=== PATIENT | female | born 1985 | race Caucasian/White ===

== ENCOUNTER → 2018-10-22 12:50 | Outpatient (CLI) | payer OTHER, SELFPAY ==
--- NOTE | 2018-10-22 12:54 | XR_ITS ---
EXAM: XR lumbar spine 2-3V HISTORY: ITS.REASON: low back pain ORDERING PHYSICIAN: Narayan Goss APRN PATIENT AGE: 32 years COMPARISON: None FINDINGS: Frontal view shows very mild curvature, approximately 7 degrees, convex towards the left. Posterior elements are intact. Bone density and vertebral body heights and disc space heights are normal considering some curvature and angulation of technique. Impression: No acute process. Very mild levoscoliosis of 7 degrees.
[2018-10-22 13:37] LABS: Basophils % 0.4 % (0.1-2.0); Eosinophils # 0.1 K/mm3 (0.0-0.4); Eosinophils % 1.1 % (0.1-12.0); Hematocrit 42.1 % (37.0-47.0); Hemoglobin 13.5 g/dL (12.2-16.2); Lymphocytes # 2.8 K/mm3 (0.7-4.5); Lymphocytes % 25.9 % (10-50); Mean Corpuscular HGB Conc 32.2 g/dL (31.8-35.4); Mean Corpuscular Hemoglobin 30.1 pg (27.0-31.2); Mean Corpuscular Volume 93.6 fl (81-99); Mean Platelet Volume 10.3 fl (7.4-10.4); Monocytes # 0.4 K/mm3 (0.1-1.0); Monocytes % 3.9 % (1.7-9.3); Neutrophils # 7.3 K/mm3 (1.8-7.8); Neutrophils % 68.6 % (37.0-80.0); Platelet Count 235 K/mm3 (142-424); Red Cell Distribution Width 13.9 % (11.5-17.5); White Blood Count 10.7 K/mm3 (4.8-10.8)
[2018-10-22 19:01] LABS: Alanine Aminotransferase 18 U/L (12-78); Albumin Level 3.9 gm/dL (3.4-5.0); Albumin/Globulin Ratio 1.3 (1.1-1.8); Alkaline Phosphatase 56 U/L (46-116); Anion Gap 17.3 mEq/L (5-15); Aspartate Amino Transferase 10 U/L (15-37); Bilirubin,Total 0.4 mg/dL (0.2-1.0); Blood Urea Nitrogen 19 mg/dL (7-18); Calcium 9.3 mg/dL (8.5-10.1); Carbon Dioxide 22 mmol/L (21.0-32.0); Chloride 105 mmol/L (98-107); Chol/HDL Ratio 3.9 (1-3.5); Cholesterol 153 mg/dL (140-200); Creatinine,Serum 0.74 mg/dL (0.55-1.02); Estimated Glomerular Filt Rate 91 ml/min (>60); GFR (African American) 110 ML/MIN (>60); Globulin 3.1 gm/dl (1.3-3.2); Glucose 87 mg/dL (74-106); HDL Cholesterol 39 mg/dL (29-89); LDL Cholesterol 101 mg/dL (0-130); Potassium 3.3 mmoL/L (3.5-5.1); Sodium 141 mmol/L (136-145); T4 (Thyroxine) 8.9 ug/dl (4.7-13.3); Thyroid Stimulating Hormone 0.49 uIU/ml (0.358-3.740); Triglycerides 66 mg/dL (30-200); VLDL Cholesterol 13 mg/dL (0-40)
[2018-10-25 18:17] LABS: Vitamin D 25 Hydroxy 35.3 ng/mL (30.0-100.0)
== END ==
PROVIDERS: PCP Nurse Practitioner Family; Visit Provider Nurse Practitioner Family
DX: Z00.00 Encounter for general adult medical examination without abnormal findings (principal); M54.42 Lumbago with sciatica, left side; G89.29 Other chronic pain
CPT/HCPCS: 36415; 72100; 80053; 80061; 82652; 84436; 84443; 85025

== ENCOUNTER → 2019-07-15 16:48 | Outpatient (CLI) | payer BC, SELFPAY ==
[2019-07-29 08:40] LABS: Covid-19 Nasal PCR Sendout Lex NOT DETECTED
--- NOTE | 2019-07-29 09:30 | PC.NURSE ---
Patient and provider notified of negative COVID 19 results. Results also faxed to [facility].
== END ==
PROVIDERS: Visit Provider Nurse Practitioner Family
DX: R06.02 Shortness of breath (principal); R50.9 Fever, unspecified; R05 Cough; R53.83 Other fatigue

== ENCOUNTER 2019-08-14 15:25 | Observation (INO) | payer BC, SELFPAY ==
[2019-08-14 15:25] VITALS: BP 120/49; PULSE 89; RESP 20; TEMP 36.8; O2SAT 100; BMI 25.0
[2019-08-14 15:40] VITALS: BMI 25.0
--- NOTE | 2019-08-14 15:40 | CT_ITS ---
Procedure: CT ABDOMEN PELVIS W CON Patient Age:33Y CLINICAL INDICATION: ABD PAIN right-sided abdominal pain radiates into back. Smoker Previous hysterectomy.patient drank oral contrast prior to the scan COMPARISON: No exams were available for comparison TECHNIQUE: 75 cc Optiray 350. IV contrast utilized. Diluted Gastrografin enteric contrast also given oral Axial images obtained with sagittal and coronal reformats. All CT scans at the facility use one or more dose reduction, viz: automated exposure control, ma/kV adjustment per patient size (including targeted exams where dose is matched to indication, i.e. head), or iterative reconstruction technique. FINDINGS: Lower thorax: No acute finding. 9 mm benign calcified granuloma periphery left lung base ABDOMEN: Liver: No masses or biliary dilatation. Unremarkable Gallbladder: Nondistended. No radio opaque stones. Pancreas: No masses or peripancreatic fluid collections. Spleen: unremarkable Adrenals: unremarkable Kidneys/ureters: unremarkable PELVIS: Hysterectomy no adnexal masses e Bladder: Nondistended. No obvious stones or masses.. GI tract.=== Stomach. Unremarkable. Contrast mixed with food remains within stomach Small bowel. Proximal small bowel borderline and upper normal caliber contrast filled proximal small bowel measured at 2.5 cm with a air-fluid levels. The oral contrast is only reached the mid small bowel even after what seems to be adequate time of 80 minutes on technologist's data sheet. With this we see numerous Unopacified loops of ileum seen at the at left and right abdomen. This along with the slight increased fluid at the distal small bowel and delayed transit, suggestive of mild ileus.. Upper normal wall thickness seen at some areas of small bowel. . There does seem to be slight increased fluid with of scattered few air-fluid levels at the distal small bowel findings may reflect mild ileus or could be related delayed transit due to the increased stool right colon yielding partial restriction The terminal ileum appears normal. The appendix is normal. Large bowel. Generous increased solid stool throughout the right and transverse colon suggesting mild constipation Moderate gas with minimal stool throughout the left colon, descending colon and rectosigmoid. Upper normal wall thickness at splenic flexure most likely reflects lack distension Of large bowel here Peritoneum: No abnormal fluid collections. No obvious inflammatory changes. No free air. Lymph nodes: No significant enlarged lymph nodes apparent. Few small scattered non-specific nodes mesentery doubt of current significance. Vasculature: Unremarkable no evidence of abdominal aortic aneurysm... Bones: No acute fracture IMPRESSION: Prominent, increased stool throughout the right and transverse colon reflecting constipation in these regions. Borderline dilatation of proximal small bowel loops with slow transit of oral contrast. (After approximately 80 minutes oral contrast is only reached the mid small bowel. It typically reaches the terminal ileum by this period of time) This a slow transit may reflect mild ileus or conceivably could be due to the increased stool delaying transit Appendix normal.. No acute inflammatory changes abdomen or pelvis Dictated by: German Cartwright MD 08/14/2019 18:52 Electronically signed by German Cartwright MD in [place] 08/14/2019 18:52
[2019-08-14 15:56] LABS: Microscopic, Urine URINE MICROSCOPIC (MICROSCOPIC)
[2019-08-14 15:59] LABS: Basophils # 0.1 K/mm3 (0-0.2); Eosinophils # 0.3 K/mm3 (0.0-0.4); Eosinophils % 3.5 % (0.1-12.0); Hematocrit 43.6 % (37.0-47.0); Hemoglobin 14.5 g/dL (12.2-16.2); Lymphocytes # 2.8 K/mm3 (0.7-4.5); Lymphocytes % 34.1 % (10-50); Mean Corpuscular HGB Conc 33.3 g/dL (31.8-35.4); Mean Corpuscular Hemoglobin 29.6 pg (27.0-31.2); Mean Corpuscular Volume 88.8 fl (81-99); Mean Platelet Volume 10.7 fl (7.4-10.4); Monocytes # 0.3 K/mm3 (0.1-1.0); Monocytes % 4.2 % (1.7-9.3); Neutrophils # 4.7 K/mm3 (1.8-7.8); Neutrophils % 57.2 % (37.0-80.0); Platelet Count 201 K/mm3 (142-424); Red Blood Count 4.91 M/mm3 (4.20-5.40); Red Cell Distribution Width 13.2 % (11.5-17.5); White Blood Count 8.2 K/mm3 (4.8-10.8)
[2019-08-14 16:01] LABS: Appearance,Urine CLEAR (Clear); Bilirubin,Urine Negative (Negative); Blood, Urine Negative (Negative); Color,Urine YELLOW (Yellow); Glucose,Urine (UA) TRACE (Negative); Ketones,Urine TRACE (Negative); Leukocyte Esterase,Urine TRACE (Negative); Nitrate,Urine POSITIVE (Negative); Protein,Urine 2+ (Negative); Specific Gravity, Urine 1.025 (1.005-1.030); Urobilinogen,Urine >=8.0 EU/dl (0.2)
[2019-08-14 16:11] LABS: Bacteria,Urine 2+ /lpf
[2019-08-14 16:12] LABS: Amphetamine/Metha Screen,Urine Negative ng/ml (<1000); Barbiturates Screen,Urine Negative ng/ml (<200)
[2019-08-14 16:13] LABS: Benzodiazepines Screen,Urine Negative ng/ml (<200)
[2019-08-14 16:14] LABS: Cannabinoid Screen,Urine Positive ng/ml (<50); Cocaine Screen,Urine Negative ng/ml (<300)
[2019-08-14 16:15] LABS: Methadone Screen,Urine Negative ng/ml (<300)
[2019-08-14 16:16] LABS: Opiate Screen,Urine Negative ng/ml (<300); Phencyclidine Screen,Urine Negative ng/ml (<25)
--- NOTE | 2019-08-14 16:20 | PC.NURSE ---
NOTIFIED RAD OF PT FINISHING CONTRAST
[2019-08-14 16:36] LABS: Alanine Aminotransferase 9 U/L (12-78); Albumin Level 4.5 g/dl (3.5-5.0); Albumin/Globulin Ratio 1.4 (1.1-1.8); Alkaline Phosphatase 43 U/L (38-126); Amylase 44 U/L (30-110); Anion Gap 10.6 mEq/L (5-15); Aspartate Amino Transferase 26 U/L (14-36); Bilirubin,Total 0.3 mg/dl (0.2-1.3); Blood Urea Nitrogen 14 mg/dl (7-17); Calcium 9.7 mg/dl (8.4-10.2); Carbon Dioxide 31 mmol/L (22.0-30.0); Chloride 100 mmol/L (98-107); Creatinine Clearance Estimated 153 mL/min (50-200); Estimated Glomerular Filt Rate 115 ml/min (>60); GFR (African American) 139 ML/MIN (>60); Globulin 3.3 g/dL (1.3-3.2); Glucose 84 mg/dl (74-100); Lipase 23 U/L (23-300); Potassium 3.6 mmoL/L (3.5-5.1); Sodium 138 mmol/L (136-145); Total Protein,Serum 7.8 g/dl (6.3-8.2)
--- NOTE | 2019-08-14 18:41 | PC.NURSE ---
CALLED RADIOLOGY FOR UPDATE ON RESULTS OF CT, STATED HE WAS READING IT RIGHT NOW
--- NOTE | 2019-08-14 18:55 | PC.NURSE ---
CALLED AGAIN TO FIND OUT WHY RADIOLOGIST HADN'T READ CT. SPOKE WITH GUANACO. SHE ADVISED THAT HE HAD JUST FINISHED READING IT AND THE COMPLETE REPORT SHOULD BE INTO PAX WITHIN 4 MINS.
--- NOTE | 2019-08-14 18:59 | PC.NURSE ---
PAGING DR MCDANIEL, WHO IS CHEMIC MANGLER FOR DR COUGHLIN
--- NOTE | 2019-08-14 19:08 | HMH.EDABDPAI ---
ED Disposition Clinical Impression: Adynamic ileus, Abdominal pain Disposition: Admitted as Observation Condition on Discharge: Good Instructions: DI for Acute Abdomen Additional Instructions: Spoke to Dr. Arzate for admission for this patient. Referrals: Edgar Todd MD [Primary Care Provider] - - Critical Care Critical Care Time: No Attestation: On 08/14/19, the high probability of a clinically significant, sudden or life threatening deterioration of the following system(s) required my full and direct attention, intervention and personal management. The time I documented below is in addition to time spent performing reported procedures but includes the following listed in this critical care notation. Medical Decision Making - Medical Records Medical records reviewed: Yes: I reviewed the patient's medical records. - Royce Inquiry Pt receiving controlled substance: No Vital Signs: 08/14/19 15:25 Temperature 98.3 F Temperature Source Oral Pulse Rate [Right] 89 Respiratory Rate 20 Blood Pressure [Right Arm] 120/49 L Blood Pressure Mean [Right Arm] 72 02 Sat by Pulse Oximetry 100 - Lab Data Lab results reviewed: Yes: I reviewed the patient's lab results. Lab Results 08/14/19 15:45: Urine Color Yellow, Urine Appearance Clear, Urine pH 5.0, Ur Specific [place] 1.025, Urine Protein 2+, Urine Glucose (UA) Trace, Urine Ketones Trace, Urine Blood Negative, Urine Nitrate Positive, Urine Bilirubin Negative, Urine Urobilinogen >=8.0, Ur Leukocyte Esterase Trace, Urine RBC None, Urine WBC 3-5, Ur Squamous Epith Cells 10-20, Urine Bacteria 2+ 08/14/19 15:45: WBC 8.2, RBC 4.91, Hgb 14.5, Hct 43.6, MCV 88.8, MCH 29.6, MCHC 33.3, RDW 13.2, Plt Count 201, MPV 10.7 H, Neut % (Auto) 57.2, Lymph % (Auto) 34.1, Bledsoe % (Auto) 4.2, Eos % (Auto) 3.5, Baso % (Auto) 1.0, Neut # (Auto) 4.7, Lymph # (Auto) 2.8, Bledsoe # (Auto) 0.3, Eos # (Auto) 0.3, Baso # (Auto) 0.1 08/14/19 15:45: Sodium 138, Potassium 3.6, Chloride 100, Carbon Dioxide 31 H, Anion Gap 10.6, BUN 14, Creatinine 0.60, Estimated Creat Clear 153, Estimated GFR 115, Est GFR ( Amer) 139, Glucose 84, Calcium 9.7, Total Bilirubin 0.3, AST 26, ALT 9 L, Alkaline Phosphatase 43, Total Protein 7.8, Albumin 4.5, Globulin 3.3 H, Albumin/Globulin Ratio 1.4, Amylase 44, Lipase 23 08/14/19 15:45: Urine Opiates Screen Negative, Urine Methadone Screen Negative, Ur Barbituates Screen Negative, Ur Phencyclidine Scrn Negative, Ur Amphetamines Screen Negative, U Benzodiazepines Scrn Negative, Urine Cocaine Screen Negative, U Marijuana (THC) Screen Positive H Result diagrams: 08/14/19 15:45 08/14/19 15:45 Orders (Tests/Meds): ED MEDICATIONS Generic Name Dose Route Start Last Admin Trade Name Freq PRN Reason Stop Dose Admin Sodium Chloride 1,000 mls @ 999 mls/hr 08/14/19 16:30 08/14/19 16:22 Sod Chlor 0.9% 1000ml Bag IV 08/14/19 17:30 999 mls/hr .Q1H1M ANTHONY Administration Discontinued Medications Generic Name Dose Route Start Last Admin Trade Name Freq PRN Reason Stop Dose Admin Fentanyl Citrate 85 mcg 08/14/19 16:20 08/14/19 16:22 Fentanyl 100mcg/2ml Vial IV 08/14/19 16:21 85 mcg ONCE ONE Administration Hydromorphone HCl 1 mg 08/14/19 18:34 08/14/19 18:35 Dilaudid 2mg/Ml Syringe IV 08/14/19 18:35 1 mg ONCE ONE Administration Ioversol 75 ml 08/14/19 17:43 08/14/19 17:44 Rad-Optiray 350 100ml Vial IV 08/14/19 17:44 75 ml ONCE ONE Administration Protocol Ketorolac Tromethamine 30 mg 08/14/19 15:41 08/14/19 16:22 Toradol 30mg/Ml Vial IV 08/14/19 15:42 30 mg ONCE ONE Administration Morphine Sulfate 4 mg 08/14/19 17:01 08/14/19 17:02 Morphine 4mg/Ml Syringe IV 08/14/19 17:02 4 mg ONCE ONE Administration Ondansetron HCl 4 mg 08/14/19 16:20 08/14/19 16:22 Zofran 4mg/2ml Vial IV 08/14/19 16:21 4 mg ONCE ONE Administration Sodium Chloride 10 ml 08/14/19 17:43 08/14/19 17:44 R
[2019-08-14 19:41] VITALS: BP 105/72; PULSE 73; RESP 14; TEMP 36.8; O2SAT 98
--- NOTE | 2019-08-14 19:55 | PC.NURSE ---
PT ARRIVED TO THE FLOOR VIA W/C FROM ED DEPARTMENT @ [id number].
[2019-08-14 20:04] VITALS: BP 112/64; PULSE 70; RESP 18; TEMP 36.6; O2SAT 99; BMI 26.5
[2019-08-14 21:04] LABS: C-Reactive Protein 2.1 mg/L (0-4)
[2019-08-14 21:16] LABS: Erythrocyte Sedimentation Rate 7 mm/hr (0-20)
--- NOTE | 2019-08-15 03:33 | PC.NURSE ---
Pt with much pain r/t left lower quad abdomen radiating into flank area. Pt reports, I tried everything I could think of to fix myself, I took AZO & Dulcolax thinking I needed to have a bm or it could be my kidneys, but nothing worked to get rid of this pain. Reports began the beginning of the week and worsened last 2 days to the point of being unbearable. During admission pt reported losing her brother in a MVC last week in [place]. They were 15 months apart and very close which has put her under a lot of stress. Pt tearful during conversation, also reporting she was quarantined from work r/t sickness, just one thing after another. Vital signs stable, IV infusing well, up with steady gait to bathroom, pt reports a bm this morning and asked, How can someone with a clogged bowel have a bm? Education given with pt on board with POC. Bowel sounds are audible in all quads, abd soft and tender. Pt found curled towards the left side with feet pulled inward, resting, monitoring continues.
[2019-08-15 04:27] VITALS: BP 90/58; PULSE 70; RESP 16; TEMP 36.4; O2SAT 97
[2019-08-15 05:59] LABS: Basophils % 0.6 % (0.1-2.0); Eosinophils # 0.3 K/mm3 (0.0-0.4); Eosinophils % 5.3 % (0.1-12.0); Hematocrit 36.2 % (37.0-47.0); Lymphocytes # 2.2 K/mm3 (0.7-4.5); Lymphocytes % 37.3 % (10-50); Mean Corpuscular HGB Conc 32.8 g/dL (31.8-35.4); Mean Corpuscular Hemoglobin 29.1 pg (27.0-31.2); Mean Corpuscular Volume 88.6 fl (81-99); Mean Platelet Volume 10.6 fl (7.4-10.4); Monocytes # 0.3 K/mm3 (0.1-1.0); Monocytes % 5.7 % (1.7-9.3); Neutrophils % 51.1 % (37.0-80.0); Platelet Count 141 K/mm3 (142-424); Red Blood Count 4.09 M/mm3 (4.20-5.40); Red Cell Distribution Width 13.1 % (11.5-17.5); White Blood Count 5.8 K/mm3 (4.8-10.8)
[2019-08-15 06:03] LABS: Hemoglobin 11.9 g/dL (12.2-16.2)
[2019-08-15 06:05] LABS: Chloride 110 mmol/L (98-107); Potassium 3.7 mmoL/L (3.5-5.1); Sodium 138 mmol/L (136-145)
[2019-08-15 06:08] LABS: Alanine Aminotransferase 6 U/L (12-78); Albumin Level 3.1 g/dl (3.5-5.0); Albumin/Globulin Ratio 1.1 (1.1-1.8); Alkaline Phosphatase 38 U/L (38-126); Anion Gap 3.7 mEq/L (5-15); Aspartate Amino Transferase 17 U/L (14-36); Bilirubin,Total 0.3 mg/dl (0.2-1.3); Blood Urea Nitrogen 10 mg/dl (7-17); Carbon Dioxide 28 mmol/L (22.0-30.0); Creatinine Clearance Estimated 161 mL/min (50-200); Estimated Glomerular Filt Rate 115 ml/min (>60); GFR (African American) 139 ML/MIN (>60); Globulin 2.7 g/dL (1.3-3.2); Total Protein,Serum 5.8 g/dl (6.3-8.2)
[2019-08-15 06:09] LABS: Glucose 85 mg/dl (74-100)
[2019-08-15 06:10] LABS: Calcium 8.4 mg/dl (8.4-10.2)
--- NOTE | 2019-08-15 07:16 | HMH.PHAVTE ---
[facility] Pharmacy VTE Monitoring - Patient Demographics Admission date: 08/14/19 Report Date: 08/15/19 Time: 07:16 Allergies/Adverse Reactions: Patient Allergies ciprofloxacin [From Cipro] Allergy (Unknown, Verified 07/15/19 15:26) Penicillins Allergy (Unknown, Verified 07/15/19 15:26) Sulfa (Sulfonamide Antibiotics) Allergy (Unknown, Verified 07/15/19 15:26) Height: 1.7 m Weight: 76.657 kg Patient Problems: Current Active Problems (This Medical Record has been edited. Action required.) Adynamic ileus (Acute) Abdominal pain (Acute) - VTE Risk Labs: VTE Related Lab Results Hgb 11.9 g/dL (12.2-16.2) L D 08/15/19 05:38 Hct 36.2 % (37.0-47.0) L 08/15/19 05:38 Plt Count 141 K/mm3 (142-424) L D 08/15/19 05:38 BUN 10 mg/dl (7-17) D 08/15/19 05:38 Creatinine 0.60 mg/dl (0.52-1.04) 08/15/19 05:38 Estimated Creat Clear 161 mL/min (50-200) 08/15/19 05:38 Was VTE Risk Assessment Performed: Yes VTE Score: 2 VTE Risk Level: Very Low Risk Clinical Trial Participant: No - Prophylaxis VTE Prophylaxis Ordered?: Yes Types of VTE Prophylaxis: TEDS Knee High Location of Applied Device: Bilateral Lower Extremeties
--- NOTE | 2019-08-15 07:25 | HMH.PHAINT ---
CLARIFIED SUBUTEX DOSE WITH HOME [facility] IN [place]
[2019-08-15 08:00] VITALS: BP 108/59; PULSE 58; RESP 20; TEMP 36.5; O2SAT 98
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
== END 2019-08-15 12:45 | disposition home or self-care (01) ==
LOC: ER 19:16 → 2ND 20:11
PROVIDERS: Admitting Provider Family Medicine; Emergency Provider Family Medicine; PCP Emergency Medicine; Visit Provider Emergency Medicine
DX: N39.0 Urinary tract infection, site not specified (principal); B96.20 Unspecified Escherichia coli [E. coli] as the cause of diseases classified elsewhere; R10.9 Unspecified abdominal pain; K56.7 Ileus, unspecified; Z85.42 Personal history of malignant neoplasm of other parts of uterus; Z85.41 Personal history of malignant neoplasm of cervix uteri; Z86.14 Personal history of Methicillin resistant Staphylococcus aureus infection; Z79.899 Other long term (current) drug therapy; M19.90 Unspecified osteoarthritis, unspecified site; F41.9 Anxiety disorder, unspecified; Z72.0 Tobacco use; Z88.0 Allergy status to penicillin; Z88.1 Allergy status to other antibiotic agents; Z90.89 Acquired absence of other organs; Z88.2 Allergy status to sulfonamides
CPT/HCPCS: 36415; 74177; 80053; 80305; 81001; 82150; 83690; 85025; 85651; 86140; 87086; 87088; 87186; 96365; 96375; 99284; G0378; J2405; Q9967

== ENCOUNTER → 2019-09-12 09:15 | Outpatient (CLI) | payer BC, SELFPAY ==
--- NOTE | 2019-09-12 09:24 | XR_ITS ---
PROCEDURE: XR HIP LT 2-3V W/PELVIS CLINICAL INDICATION: left hip pain Left hip pain COMPARISON: No exams were available for comparison FINDINGS: No fracture or dislocation is evident. No significant degenerative change. No lytic or blastic change. Unremarkable soft tissues. IMPRESSION: Negative left hip Dictated by: Benito Luther MD 09/12/2019 09:47 Electronically signed by Benito Luther MD in [place] 09/12/2019 09:47
== END ==
PROVIDERS: PCP Emergency Medicine; Visit Provider Orthopaedic Surgery
DX: M25.552 Pain in left hip (principal)
CPT/HCPCS: 73502

== ENCOUNTER → 2019-09-27 11:45 | Outpatient (POV) | payer BC, SELFPAY ==
[2019-09-27 12:05] VITALS: BP 136/80; PULSE 76; RESP 20; O2SAT 98; BMI 27.4
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
== END ==
PROVIDERS: PCP Emergency Medicine; Visit Provider Clinical Nurse Specialist Family Health
DX: M46.1 Sacroiliitis, not elsewhere classified (principal)
CPT/HCPCS: 99202

== ENCOUNTER 2019-10-07 11:49 | Day surgery (SDC) | payer BC, SELFPAY ==
[2019-10-07 12:09] VITALS: BP 108/70; PULSE 73; RESP 18; TEMP 36.6; O2SAT 98; BMI 25.0
[2019-10-07 12:20] VITALS: BP 128/89; PULSE 89; RESP 18; O2SAT 98
[2019-10-07 12:21] VITALS: BP 129/78; PULSE 89; RESP 18; O2SAT 98
--- NOTE | 2019-10-07 12:23 | P.PCN_ITS ---
- Procedure Date: 10/07/19 Time: 12:23 Anesthesiologist:: Marcello Otoole MD Complications:: None Pre-procedure Diagnosis:: Sacroiliitis Post-procedure Diagnosis:: same Indications for Procedure:: This patient is a pleasant 33-year-old white female who we are seeing for left- sided hip pain. She is tender over the left SI joint. She has a positive Sabina's test on left side. She has a positive Linda test on left side. She is positive SI joint compression test on left side. We will do a left SI joint injection under fluoroscopy today to help her with her pain symptoms. Procedure Details:: Left SI joint injection under fluoroscopy Informed consent was obtained and the risks and benefits of the procedure was explained to the patient. Patient was taken to the procedure room. Patient was placed prone on the procedure table. The left hip was prepped using ChloraPrep. The skin and subcutaneous tissues were anesthetized using lidocaine. I placed a 22-gauge spinal needle into the inferior aspect of the left SI joint. Needle placement was confirmed with dye. After this we injected 5 mL bupivacaine 0.25% and Depo-Medrol 40 mg into the left SI joint. The patient tolerated the procedure well with no complication. Plan and Disposition:: We will follow-up with her in 2 weeks. Will reevaluate symptoms at that time.
[2019-10-07 12:25] VITALS: BP 109/76; PULSE 65; RESP 18; O2SAT 98
== END 2019-10-07 12:25 | disposition home or self-care (01) ==
LOC: SC.PAINP 11:50
PROVIDERS: PCP Emergency Medicine; Visit Provider Anesthesiology
DX: M46.1 Sacroiliitis, not elsewhere classified (principal); Z72.0 Tobacco use; F41.9 Anxiety disorder, unspecified; F32.9 Major depressive disorder, single episode, unspecified; Z90.89 Acquired absence of other organs; Z87.39 Personal history of other diseases of the musculoskeletal system and connective tissue; I10 Essential (primary) hypertension; Z88.0 Allergy status to penicillin; Z88.1 Allergy status to other antibiotic agents; Z88.2 Allergy status to sulfonamides; Z88.8 Allergy status to other drugs, medicaments and biological substances
CPT/HCPCS: 27096; G0260; J1040; Q9966

== ENCOUNTER → 2020-03-21 14:32 | Outpatient (CLI) | payer MEDICAID, SELFPAY ==
[2020-03-21 15:06] LABS: Basophils # 0.1 K/mm3 (0-0.2); Basophils % 0.8 % (0.1-2.0); Eosinophils # 0.2 K/mm3 (0.0-0.4); Hematocrit 47.6 % (37.0-47.0); Hemoglobin 16.2 g/dL (12.2-16.2); Lymphocytes # 2.1 K/mm3 (0.7-4.5); Lymphocytes % 30.4 % (10-50); Mean Corpuscular Hemoglobin 31.1 pg (27.0-31.2); Mean Corpuscular Volume 91.5 fl (81-99); Mean Platelet Volume 10.2 fl (7.4-10.4); Monocytes # 0.3 K/mm3 (0.1-1.0); Monocytes % 4.6 % (1.7-9.3); Neutrophils # 4.3 K/mm3 (1.8-7.8); Neutrophils % 61.2 % (37.0-80.0); Platelet Count 183 K/mm3 (142-424); Red Cell Distribution Width 13.7 % (11.5-17.5)
[2020-03-21 17:59] LABS: Alanine Aminotransferase 9 U/L (12-78); Albumin Level 4.1 g/dl (3.5-5.0); Albumin/Globulin Ratio 1.5 (1.1-1.8); Alkaline Phosphatase 55 U/L (38-126); Anion Gap 9.2 mEq/L (5-15); Aspartate Amino Transferase 21 U/L (14-36); Bilirubin,Total 0.4 mg/dl (0.2-1.3); Blood Urea Nitrogen 13 mg/dl (7-17); Calcium 9.4 mg/dl (8.4-10.2); Carbon Dioxide 30 mmol/L (22.0-30.0); Chloride 101 mmol/L (98-107); Estimated Glomerular Filt Rate 114 ml/min (>60); GFR (African American) 138 ML/MIN (>60); Globulin 2.7 g/dL (1.3-3.2); Glucose 86 mg/dl (74-100); Potassium 4.2 mmoL/L (3.5-5.1); Sodium 136 mmol/L (136-145); Total Protein,Serum 6.8 g/dl (6.3-8.2)
[2020-03-21 18:09] LABS: Intact Parathyroid Hormone 42.9 pg/mL (7.5-53.5)
== END ==
PROVIDERS: Visit Provider Otolaryngology
DX: H93.19 Tinnitus, unspecified ear (principal); R29.0 Tetany
CPT/HCPCS: 36415; 80053; 82330; 83970; 85025

== ENCOUNTER → 2020-05-15 12:02 | Outpatient (CLI) | payer OTHER, SELFPAY ==
--- NOTE | 2020-05-15 12:15 | XR_ITS ---
PROCEDURE: XR CERVICAL SPINE W FLEX/EXT CLINICAL INDICATION: neck pain COMPARISON: No exams were available for comparison FINDINGS: No fracture or dislocation. No lytic or blastic change. There is normal mineralization. There is minimal retrolisthesis of C3 on C4 of 2 mm possibly positional. No prevertebral soft tissue swelling. The disc spaces are well preserved. The foramina are widely patent. Other findings:No cervical ribs. Patient's head is tilted toward the left with mild upper cervical curvature convex right. Flexion and extension views show no abnormal subluxation in flexion or extension. IMPRESSION: Mild upper cervical curvature convex right and may be related to patient positioning muscle spasm or mild scoliosis. No abnormal subluxation in flexion or extension Dictated by: Benito Luther MD 05/15/2020 12:52 Benito Luther MD in [place] 05/15/2020 12:52
[2020-05-15 12:37] LABS: Basophils % 0.7 % (0.1-2.0); Eosinophils # 0.2 K/mm3 (0.0-0.4); Eosinophils % 4.1 % (0.1-12.0); Hematocrit 46.2 % (37.0-47.0); Hemoglobin 15.5 g/dL (12.2-16.2); Lymphocytes # 2.2 K/mm3 (0.7-4.5); Lymphocytes % 39.3 % (10-50); Mean Corpuscular HGB Conc 33.6 g/dL (31.8-35.4); Mean Corpuscular Hemoglobin 30.6 pg (27.0-31.2); Mean Corpuscular Volume 91.2 fl (81-99); Mean Platelet Volume 10.2 fl (7.4-10.4); Monocytes # 0.3 K/mm3 (0.1-1.0); Monocytes % 4.5 % (1.7-9.3); Neutrophils # 2.9 K/mm3 (1.8-7.8); Neutrophils % 51.4 % (37.0-80.0); Platelet Count 190 K/mm3 (142-424); Red Blood Count 5.07 M/mm3 (4.20-5.40); Red Cell Distribution Width 13.9 % (11.5-17.5); White Blood Count 5.6 K/mm3 (4.8-10.8)
[2020-05-15 14:59] LABS: Alanine Aminotransferase 8 U/L (12-78); Albumin Level 4.7 g/dl (3.5-5.0); Albumin/Globulin Ratio 1.4 (1.1-1.8); Alkaline Phosphatase 62 U/L (38-126); Anion Gap 12.3 mEq/L (5-15); Aspartate Amino Transferase 24 U/L (14-36); Bilirubin,Total 0.5 mg/dl (0.2-1.3); Blood Urea Nitrogen 13 mg/dl (7-17); Calcium 9.9 mg/dl (8.4-10.2); Carbon Dioxide 32 mmol/L (22.0-30.0); Chloride 100 mmol/L (98-107); Estimated Glomerular Filt Rate 114 ml/min (>60); GFR (African American) 138 ML/MIN (>60); Globulin 3.3 g/dL (1.3-3.2); Glucose 87 mg/dl (74-100); Potassium 4.3 mmoL/L (3.5-5.1); Sodium 140 mmol/L (136-145)
[2020-05-15 15:10] LABS: Intact Parathyroid Hormone 45.9 pg/mL (7.5-53.5)
[2020-05-15 16:46] LABS: Thyroid Stimulating Hormone 0.59 uIU/mL (0.465-4.68)
[2020-05-15 17:21] LABS: Vitamin B12 437 pg/mL (239-931)
[2020-05-18 12:50] LABS: Calcium, Ionized 5.2 mg/dL (4.5-5.6)
== END ==
PROVIDERS: Visit Provider Specialist
DX: R55 Syncope and collapse (principal); R42 Dizziness and giddiness; G93.40 Encephalopathy, unspecified; R29.0 Tetany; M54.2 Cervicalgia
CPT/HCPCS: 36415; 72052; 80053; 82330; 82607; 82746; 83970; 84443; 85025

== ENCOUNTER → 2020-05-22 07:11 | Day surgery (SDC) | payer OTHER, SELFPAY ==
[2020-05-22 07:57] VITALS: BMI 24.3
--- NOTE | 2020-05-22 09:58 | HMH.TILT ---
Findings:: PROCEDURE: Upright tilt table test REQUESTING PHYSICIAN: Jennyfer Burger MD INDICATION: History of syncope for several years, becoming more frequent over the past year. Frequent episodes of dizziness. HOME MEDICATIONS: cyclobenzaprine, amitriptyline, prazosin, buprenorphine. NO BETA BLOCKERS. PRE-TEST VITAL SIGNS: BP 109/71, HR 72 and regular, O2sats 100% PROCEDURE SUMMARY: Patient was connected to the heart, blood pressure and O2 sat monitor, then tilted upright at 85 degrees. She remained in the upright position for approximately 45 minutes. She complained of some very brief dizziness when being raised into the upright position but otherwise was asymptomatic throughout the test. Her blood pressure was stable with minimal variability during the test. Her lowest recorded BP was 98/73, after being upright for 35 minutes and highest BP was 116/71, at 30 minutes into the upright position. Her heart rate was within normal with very minimal variability during the test. Lowest HR while upright was 73 bpm and the highest was 79 bpm. She was in a normal sinus rhythm the entire time. O2stas remained in the [id number] 90s. COMPLICATIONS: None CONCLUSION: Unremarkable upright tilt table test
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
--- NOTE | 2020-05-22 11:52 | PC.NURSE ---
Repsonded to Rapid Response in MRI at 1113. Patient on MRI stretcher with Kecia Ho, and Negar Mena at bedside. Patient crying and stating difficult to breathe. IV access noted left arm. Dr Sigala, N Connie, RT, Olivia Dykes, RN, Riddhi Miranda, HUGO, Jesus Oliver, RN arrive at bedside. Benadryl 50mg IVP per this RN per Dr Luther's verbal order. school bus monitor applied, pulxe oximetry in use. VSS. O2 per mask applied per RT. Resps unlabored. Assessed per Dr Sigala. Hives noted to patient's back. No other hives visible. Ativan 1mg IVP at 1119 per this RN per Dr Sigala's order. Patient calmer, states it is easier to breathe. Transported to ED per MRI stretcher per HUGO Miranda, Connie, RT, and Rajesh, [employer] at 1123 with monitor in use. No s/s respiratory distress. Report to Abhi Vizcaino RN and Leticia Nash at bedside. HUGO Miranda
== END ==
PROVIDERS: PCP Family Medicine; Visit Provider Specialist
DX: R42 Dizziness and giddiness (principal); R55 Syncope and collapse; G93.40 Encephalopathy, unspecified; M54.2 Cervicalgia; R29.0 Tetany
CPT/HCPCS: 70553; 93270; 93660; A9576

== ENCOUNTER 2020-05-22 11:37 | Emergency (ER) | payer OTHER, SELFPAY ==
[2020-05-22 11:37] VITALS: BP 114/69; PULSE 82; RESP 20; TEMP 36.7; O2SAT 97; BMI 22.8
[2020-05-22 11:42] VITALS: PULSE 81; PULSE 86; O2SAT 100
--- NOTE | 2020-05-22 11:47 | HMH.EDGENADL ---
ED Disposition Clinical Impression: Anaphylactic reaction Qualifiers: Encounter type: initial encounter Qualified Code(s): T78.2XXA - Anaphylactic shock, unspecified, initial encounter Disposition: Home, Self-Care Condition on Discharge: Good Instructions: DI for Anaphylaxis Additional Instructions: You have an allergy to MRI contrast and should not get it in the future. Prednisone, Benadryl, and Pepcid as prescribed. EpiPen to be used for any future recurrence of anaphylactic reaction. Additional instructions for ALLERGIC REACTION: See your physician as soon as possible for further evaluation. Return immediately if severe intolerable rash or itching, trouble breathing, or faintness. Prescriptions: diphenhydrAMINE HCL [Benadryl] 25 mg PO Q6H #12 cap Transmission Status: Received by [facility] EPINEPHrine [Epipen 2-Tommy] 0.3 mg IM ONCE #1 auto.injct Transmission Status: Pending to [employer] [facility] Famotidine [Pepcid 20mg Tablet] 20 mg PO BID 6 Days #10 tab Transmission Status: Received by [employer] [facility] predniSONE [Prednisone 20mg Tab] 20 mg PO BID #6 tab Transmission Status: Received by [employer] [facility] Referrals: PCP,No [Non-Staff] - - Critical Care Critical Care Time: No Attestation: On , the high probability of a clinically significant, sudden or life threatening deterioration of the following system(s) required my full and direct attention, intervention and personal management. The time I documented below is in addition to time spent performing reported procedures but includes the following listed in this critical care notation. Medical Decision Making - Royce Inquiry Pt receiving controlled substance: No Vital Signs: 05/22/20 11:37 05/22/20 11:42 05/22/20 13:43 Temperature 98.0 F Temperature Source Oral Pulse Rate 81 Pulse Rate [Right Radial] 82 85 Respiratory Rate 20 Blood Pressure [Right Arm] 114/69 109/64 L Blood Pressure Mean [Right Arm] 84 79 Blood Pressure Source [Right Arm] Automatic Cuff Automatic Cuff Blood Pressure Position [Right Arm] Sitting Sitting 02 Sat by Pulse Oximetry 97 100 98 Oxygen Delivery Method Non-Rebreather Nasal Cannula Non-Rebreather Room Air Oxygen Flow Rate (LPM) 15 Orders (Tests/Meds): ED MEDICATIONS Generic Name Dose Route Start Last Admin Trade Name Freq PRN Reason Stop Dose Admin Sodium Chloride 8 ml 05/22/20 11:40 05/22/20 11:53 Sodium Chloride 0.9% 10ml Vial IV 06/21/20 11:39 8 ml NEEDED PRN Administration dilute pepcid Discontinued Medications Generic Name Dose Route Start Last Admin Trade Name Panchoq PRN Reason Stop Dose Admin Diphenhydramine HCl 50 mg 05/22/20 11:14 05/22/20 12:09 Diphenhydramine 50mg/Ml Vial IV 05/22/20 11:15 50 mg ONCE ONE Administration Epinephrine 0.5 ml 05/22/20 11:41 05/22/20 11:44 Epinephrine 2.25% Neb 0.5ml Ud IH 05/22/20 11:42 0.5 ml ONCE ONE Administration Epinephrine HCl 0.3 mg 05/22/20 11:40 05/22/20 11:55 Epinephrine 1 Mg/Ml Ampul IM 05/22/20 11:41 0.3 mg ONCE ONE Administration Famotidine 20 mg 05/22/20 11:40 05/22/20 11:54 Famotidine 20mg/2ml Vial IV 05/22/20 11:41 20 mg ONCE ONE Administration Lorazepam 1 mg 05/22/20 11:19 05/22/20 11:37 Lorazepam 2mg/Ml Vial IV 05/22/20 11:20 1 mg ONCE ONE Administration Methylprednisolone Sodium Succinate 125 mg 05/22/20 11:40 05/22/20 11:54 Methylprednisolone Sod Succ 125mg Vial IV 05/22/20 11:41 125 mg ONCE ONE Administration - Reevaluation(s) Time: 14:08 Reevaluation #1: Symptoms have all resolved. Physical findings have all resolved. No lip or mucosal edema. Voice is clear. Breathing is normal. No wheezes. No rash. No conjunctival injection. Vital signs are stable. General Adult HPI - General Chief complaint: Allergic Reaction Stated complaint: Allergic Reaction Time Seen by Provider: 05/22/20 11:50 Mode of Arr
[2020-05-22 13:43] VITALS: BP 109/64; PULSE 85; O2SAT 98
[2020-05-22 14:35] VITALS: BP 119/77; PULSE 98; RESP 16; TEMP 36.7; O2SAT 99
== END 2020-05-22 14:35 | disposition home or self-care (01) ==
PROVIDERS: Emergency Provider Emergency Medicine; PCP Family Medicine
DX: T88.6XXA Anaphylactic reaction due to adverse effect of correct drug or medicament properly administered, initial encounter (principal); T50.8X5A Adverse effect of diagnostic agents, initial encounter; G43.709 Chronic migraine without aura, not intractable, without status migrainosus; F41.8 Other specified anxiety disorders; Z79.899 Other long term (current) drug therapy; F17.210 Nicotine dependence, cigarettes, uncomplicated; Z88.0 Allergy status to penicillin; Z88.2 Allergy status to sulfonamides
CPT/HCPCS: 96372; 96374; 96375; 99282

== ENCOUNTER → 2020-08-24 14:24 | Outpatient (CLI) | payer OTHER, SELFPAY ==
[2020-08-24 15:28] LABS: Barbiturates Screen,Urine Positive ng/ml (<200)
[2020-08-24 15:29] LABS: Amphetamine/Metha Screen,Urine Negative ng/ml (<1000); Benzodiazepines Screen,Urine Negative ng/ml (<200)
[2020-08-24 15:30] LABS: Cannabinoid Screen,Urine Positive ng/ml (<50)
[2020-08-24 15:31] LABS: Cocaine Screen,Urine Negative ng/ml (<300); Methadone Screen,Urine Negative ng/ml (<300)
[2020-08-24 15:32] LABS: Opiate Screen,Urine Negative ng/ml (<300); Phencyclidine Screen,Urine Negative ng/ml (<25)
== END ==
PROVIDERS: Visit Provider Family Medicine
DX: Z79.899 Other long term (current) drug therapy (principal)
CPT/HCPCS: 80305

== ENCOUNTER → 2021-10-04 07:06 | Outpatient (CLI) | payer OTHER, SELFPAY ==
[2021-10-03 18:26] LABS: Barbiturates Screen,Urine Negative ng/ml (<200); Benzodiazepines Screen,Urine Negative ng/ml (<200)
[2021-10-03 18:27] LABS: Amphetamine/Metha Screen,Urine Negative ng/ml (<1000); Methadone Screen,Urine Negative ng/ml (<300)
[2021-10-03 18:28] LABS: Cannabinoid Screen,Urine Negative ng/ml (<50)
[2021-10-03 18:29] LABS: Cocaine Screen,Urine Negative ng/ml (<300); Opiate Screen,Urine Negative ng/ml (<300)
[2021-10-03 18:30] LABS: Phencyclidine Screen,Urine Negative ng/ml (<25)
== END ==
PROVIDERS: PCP Nurse Practitioner Family; Visit Provider Nurse Practitioner Family
DX: F41.0 Panic disorder [episodic paroxysmal anxiety] (principal)
CPT/HCPCS: 80305

== ENCOUNTER → 2021-12-31 08:23 | Outpatient (CLI) | payer OTHER, SELFPAY | PROVIDERS: PCP Family Medicine; Visit Provider Family Medicine | DX: J02.9 Acute pharyngitis, unspecified (principal) ==

== ENCOUNTER → 2023-04-21 23:31 | Outpatient (CLI) | payer OTHER, SELFPAY ==
[2023-04-21 23:09] LABS: Amphetamine/Metha Screen,Urine Negative ng/ml (<1000); Barbiturates Screen,Urine Negative ng/ml (<200); Benzodiazepines Screen,Urine Negative ng/ml (<200); Cannabinoid Screen,Urine Positive ng/ml (<50); Cocaine Screen,Urine Negative ng/ml (<300); Methadone Screen,Urine Negative ng/ml (<300); Opiate Screen,Urine Negative ng/ml (<300); Phencyclidine Screen,Urine Negative ng/ml (<25)
== END ==
PROVIDERS: PCP Family Medicine; Visit Provider Family Medicine
DX: F41.9 Anxiety disorder, unspecified (principal); Z79.899 Other long term (current) drug therapy
CPT/HCPCS: 80305

== ENCOUNTER 2023-09-07 12:49 | Outpatient (CLI) | payer OTHER, SELFPAY ==
--- NOTE | 2023-09-07 12:50 | MR_ITS ---
FINAL REPORT CLINICAL HISTORY: Back pain right sided leg and glute pain FINDINGS: Multiplanar MR imaging of the lumbar spine was performed without contrast. On the sagittal T2-weighted images, multilevel disc degeneration is seen. Significant endplate changes are seen at L4-5. The vertebral alignment is normal. There is no evidence of fracture. No bony mass is identified. The conus is seen at approximately the L1 level and has an unremarkable appearance. L2-3: There is an annular disc bulge without significant canal stenosis or neural foraminal narrowing. L3-4: Annular disc bulge with mild left neuroforaminal narrowing. L4-5: Annular disc bulge with central inferiorly extruded disc and left lateral recess stenosis. There is bilateral L5 nerve root impingement. There is moderate central canal stenosis with AP diameter thecal sac measuring 6 mm. There is mild bilateral neuroforaminal narrowing. L5-S1: Annular disc bulge with mild left neuroforaminal narrowing. IMPRESSION: Central inferiorly extruded disc at L4-5 with left lateral recess stenosis, bilateral L5 nerve root impingement, moderate canal stenosis and mild bilateral neuroforaminal narrowing. Reviewed, Interpreted and Dictated by Dillan Rodriguez III, MD Transcribed by Naomi Fofana Authenticated and [facility]
== END 2023-09-07 23:59 | disposition home or self-care (01) ==
LOC: RAD 12:50
PROVIDERS: PCP Family Medicine; Visit Provider Family Medicine
DX: M54.9 Dorsalgia, unspecified (principal); M54.50 Low back pain, unspecified; M46.1 Sacroiliitis, not elsewhere classified
CPT/HCPCS: 72148

== ENCOUNTER 2024-09-23 09:26 | Outpatient (CLI) | payer OTHER, SELFPAY ==
[2024-09-23 18:36] LABS: Basophils % 0.3 % (0.1-2.0); Eosinophils # 0.2 Kmm3 (0.0-0.4); Eosinophils % 2.8 % (0.1-12.0); Hematocrit 43.2 % (37.0-47.0); Hemoglobin 13.8 g/dL (12.2-16.2); Immature Granulocytes # 0.01 10^3uL; Immature Granulocytes % 0.2 %; Lymphocytes # 2.2 K/mm3 (0.7-4.5); Lymphocytes % 33.3 % (10-50); Mean Corpuscular HGB Conc 31.9 g/dL (31.8-35.4); Mean Corpuscular Hemoglobin 28.9 pg (27.0-31.2); Mean Corpuscular Volume 90.6 fl (81-99); Monocytes # 0.4 K/mm3 (0.1-1.0); Monocytes % 6.7 % (1.7-9.3); Neutrophils # 3.7 K/mm3 (1.8-7.8); Neutrophils % 56.7 % (37.0-80.0); Nucleated Red Blood Cells # 0 10^3/uL; Nucleated Red Blood Cells % 0 %; Platelet Count 211 K/mm3 (142-424); Red Blood Count 4.77 M/mm3 (4.20-5.40); Red Cell Distribution Width 12.8 % (11.5-17.5); Red Cell Distribution Width-SD 41.7 fL; White Blood Count 6.5 K/mm3 (4.8-10.8)
[2024-09-23 19:53] LABS: Alanine Aminotransferase 17 U/L (12-78); Albumin Level 4.4 g/dl (3.5-5.0); Albumin/Globulin Ratio 1.7 (1.1-1.8); Alkaline Phosphatase 53 U/L (38-126); Anion Gap 11.6 mEq/L (5-15); Aspartate Amino Transferase 27 U/L (14-36); Bilirubin,Total 0.4 mg/dl (0.2-1.3); Blood Urea Nitrogen 13 mg/dl (7-17); Calcium 9.4 mg/dl (8.4-10.2); Carbon Dioxide 30 mmol/L (22.0-30.0); Chloride 101 mmol/L (98-107); Estimated Glomerular Filt Rate 112 ml/min (>60); GFR (African American) 135 ML/MIN (>60); Globulin 2.6 g/dL (1.3-3.2); Glucose 108 mg/dl (74-100); Lipase 48 U/L (23-300); Potassium 4.6 mmoL/L (3.5-5.1); Sodium 138 mmol/L (136-145)
[2024-09-23 20:22] LABS: Thyroid Stimulating Hormone 0.79 uIU/mL (0.465-4.68)
[2024-09-23 20:32] LABS: HIV Combo NEGATIVE (Negative)
[2024-09-23 20:41] LABS: Hepatitis C Ab Qual. W/ RFX REACTIVE (Negative)
[2024-09-25 08:10] LABS: Estradiol 66.1 pg/mL (.); FSH 6.3 mIU/mL (.); Hepatitis B Surface Antigen Negative (Negative)
== END 2024-09-23 23:59 | disposition home or self-care (01) ==
LOC: LAB.DROPOF 09-26 09:26
PROVIDERS: PCP Family Medicine; Visit Provider Family Medicine
DX: E34.9 Endocrine disorder, unspecified (principal); R53.83 Other fatigue
CPT/HCPCS: 80053; 82670; 83001; 83690; 84443; 85025; 86803; 87340; 87389; 87522

== ENCOUNTER 2024-09-27 11:50 | Outpatient (CLI) | payer OTHER, SELFPAY ==
[2024-09-27 18:21] LABS: INR 1.03 (0.9-1.1); Prothrombin Time 11.4 seconds (10.1-12.5)
[2024-09-27 19:41] LABS: HCG Qualitative, Serum Negative (Negative)
[2024-09-29 06:18] LABS: Hep A Ab, IgM Negative (Negative); Hep A Ab, Total Positive (Negative); Hep B Core Ab, Total Negative (Negative); Hep B Surface Ab, Qual Reactive (.); Hepatitis B Surface Antigen Negative (Negative)
== END 2024-09-27 23:59 | disposition home or self-care (01) ==
LOC: LAB.DROPOF 09-28 09:03
PROVIDERS: PCP Family Medicine; Visit Provider Family Medicine
DX: R76.8 Other specified abnormal immunological findings in serum (principal)
CPT/HCPCS: 84703; 85610; 86704; 86706; 86708; 87340; 87902

== ENCOUNTER 2024-10-11 23:36 | Outpatient (CLI) | payer OTHER, SELFPAY ==
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
--- OUTSIDE RECORDS SUMMARY | 2024-10-11 23:40 | XMS_ITS | Clinical Summary ---
Author Organization [facility] Address [address] [address] [place] [address] Phone Care Team Providers Care Office Associate Name Role Phone Fabricio Meadows MD Primary Care Provider [phone] Allergies Active Allergy Reactions Criticality Noted Date Comments Ciprofloxacin (Bulk) 08/15/2015 Codeine 07/31/2014 Gadolinium-Containing Contrast Media Anaphylaxis High 04/09/2023 Latex Rash 08/12/2015 Penicillins 07/31/2014 Sulfa (Sulfonamide Antibiotics) 04/09/2014 Medications * This document contains information received from the source organization and may not represent a complete record from that organization. primidone (MYSOLINE) 250 mg Oral Tablet Take 250 mg by mouth nightly. 4 Active clonazePAM (KLONOPIN) 0.5 mg Oral Tablet Take 0.5 mg by mouth 2 times daily. AM and dinnertime 4 Active fUROsemide (LASIX) 20 mg Oral TabletIndications: edema Take 20 mg by mouth every 12 hours as needed for Other (prn for edema). Indications: visible water retention Active prazosin (MINIPRESS) 1 mg Oral Capsule Take 1 mg by mouth nightly. Active nalOXone (NARCAN) 4 mg/actuation Nasl [place], Non-Aerosol 0.1 mL by Nasal route as needed for Opioid Reversal. 1 Each 4 Active dexAMETHasone (DECADRON) 6 mg Oral TabletIndications: Status post lumbar surgery,Lumbar pain,Lumbar radiculopathy Take 1 Tablet by mouth daily (with breakfast). 10 Tablet 5 Active methocarbamoL (ROBAXIN) 750 mg Oral TabletIndications: Status post lumbar surgery,Lumbar pain,Lumbar radiculopathy Take 1 Tablet by mouth 3 times daily as needed for Pain. 90 Tablet 5 Active gabapentin (NEURONTIN) 300 mg Oral CapsuleIndications :Status post lumbar surgery,Lumbar pain,Lumbar radiculopathy,HNP (herniated nucleus pulposus), lumbar,Degeneratio n of intervertebral disc of lumbar region with discogenic back pain and lower extremity pain,Radiculopathy of lumbar region Take 1 Capsule by mouth 3 times daily. 90 Capsule 5 Active cyclobenzaprine (FLEXERIL) 10 mg Oral TabletIndications: Lumbar pain,Lumbar radiculopathy,Stat us post lumbar surgery,HNP (herniated nucleus pulposus), lumbar,Degeneratio n of intervertebral disc of lumbar region with discogenic back pain and lower extremity pain Take 1 Tablet by mouth 3 times daily. 90 Tablet 5 Active ibuprofen (ADVIL;MOTRIN) 800 mg Oral TabletIndications: Lumbar pain,Lumbar radiculopathy,Stat us post lumbar surgery,Degenerati on of intervertebral disc of lumbar region with discogenic back pain and lower extremity pain,HNP (herniated nucleus pulposus), lumbar Take 1 Tablet by mouth 3 times daily as needed. 90 Tablet 5 Active Active Problems Problem Noted Date Diagnosed Date Herniated nucleus pulposus, L4-5 09/23/2024 Lumbar radiculopathy 09/23/2024 Stenosis, spinal, lumbar 09/23/2024 Degeneration of lumbar intervertebral disc 09/23 Herniated nucleus pulposus, L4-5 09/15/2023 Intractable back pain 09/15/2023 H/O: substance abuse 09/04/2023 Overview (09/04/2023): Previous buprenorphine treatment DDD (degenerative disc disease), lumbar 08/07/19 24 Encounters Date Type Department Care Team Description 10/05/2024 Telephone [facility] [address] [address] Rod Tejeda MD 09/30/2024 Orders Only [facility] [address] [address] Rod Tejeda MD Lumbar pain (Primary Dx); Lumbar radiculopathy; Status post lumbar surgery; HNP (herniated nucleus pulposus), lumbar; Degeneration of intervertebral disc of lumbar region with discogenic back pain and lower extremity pain; HNP (herniated nucleus pulposus), lumbar 09/30/2024 [place] [address] Rod Tejeda MD Other 09/23/2024 3:00 PM EDT Office Visit [facility] [address] [place] [address] Mirian Del Angel, PT Herniated nucleus pulposus, L4-5 (Primary Dx); Lumbar radiculopathy; Spinal stenosis of lumbar region, unspecified whether neurogenic claudication present; Degeneration of intervertebral disc of lumbar region with discogenic back pain and lower extremity pain 09/23/2024 Plan of Care Documentation [facility] [address] [place] [address] 09/23/2024 Plan of Care Documentation [facility] [address] [place] [address] 09/08/[address] [address] [place], Diana Handy, LEARNING AND DEVELOPMENT INTERN 09/08/[address] [address] [place], Diana Handy, LEARNING AND DEVELOPMENT INTERN 09/07/2024 Refill [facility] [address] [place] [address] Rod Tejeda MD Medication Refill 09/07/[address] [id number] [place], Diana Handy, LEARNING AND DEVELOPMENT INTERN CM-Medication Assistance 09/06/2024 Refill [facility] [address] [place], [place] [address] Rod Tejeda MD Medication Refill 09/06/[address] [address] Diana Partida APRN 08/24/2024 Telephone [place] [phone] [place] [phone] Rod Tejeda MD 08/17/2024 [place] [address] Rod Tejeda MD Orders 08/10/2024 8:00 AM EDT Office Visit [place] [phone] [place] [address] Rod Tejeda MD Status post lumbar surgery (Primary Dx); HNP (herniated nucleus pulposus), lumbar; Lumbar pain; Degeneration of intervertebral disc of lumbar region with discogenic back pain and lower extremity pain; Radiculopathy of lumbar region 08/08/2024 10:45 AM EDT Office Visit [place] [phone] Diana Partida APRN HNP (herniated nucleus pulposus), lumbar (Primary Dx); Status post lumbar surgery; Lumbar pain; Lumbar radiculopathy; Degeneration of intervertebral disc of lumbar region with discogenic back pain and lower extremity pain 08/03/2024 6:00 PM EDT - 08/03/2024 11:59 PM EDT Hospital Encounter [facility] [address] [place] [phone] Diana Partida APRN Status post lumbar surgery; Lumbar pain; Lumbar radiculopathy; History of herniated intervertebral disc Discharge Disposition: Home or Self Care 07/20/[address] [address] Diana Partida APRN 07/19/2024 11:00 AM EDT Office Visit [facility] [address] [address] Diana Partida APRN Status post lumbar surgery (Primary Dx); Lumbar pain; Lumbar radiculopathy; History of herniated intervertebral disc from Last 3 Months Surgical History Surgery Date Site/Laterality Comments HYSTERECTOMY FOOT SURGERY LUMBAR DISC SURGERY 09/16/2023 Spine/N/A left L4/5 Discectomy; Surgeon: Rod Tejeda MD; Location: [facility] MAIN OR; Service: Spine Medical History Medical History Date Comments Back pain Social History Tobacco Use Types Packs/Day Years Used Date Smoking Tobacco: Every Day Cigarettes Alcohol Use Standard Drinks/Week Comments Never 0 (1 standard drink = 0.6 oz pur e alcohol) [facility] Utilities Answer Date Recorded In the [...] Date Recorded PHQ-2 Total Score 0 09/17/2023 [facility] of Occupat ional Health - Occupational [...] money to get more. Never true 09/17/2023 [facility] IP Transportation Answer D ate Recorded In [...] on file Sexual Orientation Not on file Obstetrics History Last Filed Vital Signs Vital Sign Reading Time Taken Comments Blood Pressure 105/63 09/17/2023 9:20 AM EDT Pulse 77 09/17/2023 9:20 AM EDT Temperature 36.8 C (98.2 F) 09/17/2023 9:20 AM EDT Respiratory Rate 16 09/17/2023 9:20 AM EDT Oxygen Saturation 99% 09/17/2023 9:20 AM EDT Inhaled Oxygen Concentration - - Weight 88.5 kg (195 lb) 08/10/2024 8:22 AM EDT Height 172.7 cm (5' 8 ) 08/10/2024 8:22 AM EDT Body Mass Index 29.65 08/10/2024 8:22 AM EDT Plan of Treatment Upcoming Encounters Date Type Department Care Team (Late st Contact Info) Description 11/02/2024 11:15 AM EDT Office Visit [facility] [place] [address] [place] [address] Rod Tejeda MD [address] [place] [id number] 11/23/2024 11:00 AM EDT [facility] Visit [facility] [address] [place] [phone] Nava Ramirez MD [address] [place] [address] Health Maintenance Due Date Last Done Comments Annual Wellness Exam 1988 COVID-19 Vaccine (#1) 1990 DTaP/TDaP/Td (2 - Tdap) 1996 06/30/1996 Hepatitis B Vaccine (1 of 3 - 19+ 3-dose series) 2004 Pneumococcal Vaccine 0-49 (1 of 2 - PCV) 2004 Cervical Cancer Screening 2006 Pap Smear 2006 HPV/Pap Cotest 12/30/2015 Influenza Vaccine (Season Ended) 2024 02/18/20 19 Meningococcal B Vaccine Aged Out No l onger eligible based on patient's age to complete this topic Procedures Procedure Name Priority Date/Time Associated Diagnosis Comments MRI LUMBAR SPINE WO CONTRAST Routine 08/03/2024 6:32 PM EDT Status post lumbar surgery Lumbar pain Lumbar radiculopathy History of herniated intervertebral disc from Last 3 Months Results * MRI LUMBAR SPINE WO CONTRAST (08/03/2024 6:32 PM EDT) Anatomical Region Laterality Modality Spine, L-spine Magnetic Resonan ce 08/03/2024 6:32 PM EDT Impressions 08/03/2024 10:51 PM EDT 1. Large left paracentral disc protrusion at L4-L5 with profound central stenosis, left lateral recess narrowing, and moderate to tight right lateral recess narrowing. 2. Additional noncompressive degenerative changes at L3-L4 and L5-S1 levels. - Note: Radiology results need to be interpreted within a comprehensive clinical context. If you have questions about the radiology report, please contact the office of the ordering clinician. Narrative 08/03/2024 10:51 PM EDT MRI LUMBAR SPINE WITHOUT CONTRAST, 08/03/2024 6:32 PM CLINICAL HISTORY: Z98.890-Other specified postprocedural srbfwt-UHN-75-CM M54.50-Low back pain, brfgelycfjn-IQO-45-CM M54.16-Radiculopathy, lumbar jralew-GKW-21-CM Z87.39-Personal history of other diseases of the musculoskeletal system and connective ojpptk-GRX-66-CM. COMPARISON: Intraoperative visualization lumbar spine surgery September 16, 2023 PROCEDURE COMMENTS: Multiplanar multiecho MR imaging of the lumbar spine without contrast. FINDINGS: No acute spine fracture. Normal conus position and signal. Marrow signal: Modic endplate changes are noted at the L4-L5 level. There is no aggressive or acute abnormal vertebral marrow replacement. Level by level analysis: L1-L2: Unremarkable. L2-L3: Unremarkable. L3-L4: There is mild facet hypertrophy and mild disc bulge without neural encroachment. L4-L5: There is a very large left paracentral disc protrusion measuring 15 mm x 8 mm x 17 mm. There is tight central stenosis. There is profound left lateral recess narrowing. There is moderate to tight right lateral recess narrowing. There is bilateral foraminal crowding. L5-S1: Minimal disc bulge with slight effacement of the left lateral recess. No other neural encroachment identified. Procedure Note Lee Woodall MD - 08/03/2024 MRI LUMBAR SPINE WITHOUT CONTRAST, 08/03/2024 6:32 PM CLINICAL HISTORY: Z98.890-Other specified zykmsoxxebcpcvhxydwo-WSY-91-CM M54.50-Low back pain, vkxmmdezyvv-OER-31-CM M54.16-Radiculopathy, lumbar juqemr-VXO-09-CM Z87.39-Personal history of other diseases of the musculoskeletal systemand connective ynuqgh-YJY-09-CM. COMPARISON: Intraoperative visualization lumbar spine surgery August PROCEDURE COMMENTS: Multiplanar multiecho MR imaging of the lumbar spinewithout contrast. FINDINGS: No acute spine fracture. Normal conus position and signal. Marrow signal: Modic endplate changes are noted at the L4-L5 level. Thereis no aggressive or acute abnormal vertebral marrow replacement. Level by level analysis: L1-L2: Unremarkable. L2-L3: Unremarkable. L3-L4: There is mild facet hypertrophy and mild disc bulge withoutneural encroachment. L4-L5: There is a very large left paracentral disc protrusion measuring 15mm x 8 mm x 17 mm. There is tight central stenosis. There is profound leftlateral recess narrowing. There is moderate to tight right lateral recessnarrowing. There is bilateral foraminal crowding. L5-S1: Minimal disc bulge with slight effacement of the left lateralrecess. No other neural encroachment identified. IMPRESSION: 1. Large left paracentral disc protrusion at L4-L5 with profoundcentral stenosis, left lateral recess narrowing, and moderate to tight rightlateral recess narrowing. 2. Additional noncompressive degenerative changes at L3-L4 and L5-Q3mwusxt. - Note: Radiology results need to be interpreted within a comprehensiveclinical context. If you have questions about the radiology report, please contactthe office of the ordering clinician. Sirisha Neel-Carrillo LEARNING AND DEVELOPMENT INTERN IMG MRI ORDERABL ES Final Result from Last 3 Months Insurance [employer] [place] [employer] [place] [place] [employer] [place] Advance Directives For more information, please contact: [phone] * Full Code (Latest Code Status on File) Date Activated Date Inactivated Comments 09/16/2023 6:03 PM 09/17/2023 7:18 PM Care Teams Office Associate Relationship Specialty Start Date End Date Fabricio Meadows MD PCP - General Family Medicine 08/18/13
--- OUTSIDE RECORDS SUMMARY | 2024-10-11 23:40 | XMS_ITS | Encounter Summary ---
Author Organization [facility] Address [address] [place] [address] Care Team Providers Care Frontend Engineer Name Role Phone Fabricio Meadows MD Primary Care Provider [phone] Reason for Referral * MRI/CAT Scan (Routine) - Closed Specialty Diagnoses / Procedures Referred By Nasreen monson Referred To Contact Radiology Diagnoses Status post lumbar surgery Lumbar pain Lumbar radiculopathy History of herniated intervertebral disc Procedures MRI LUMBAR SPINE WO CONTRAST Diana Fong, SHANTELL [address] [place] [phone] Phone: tel: fax: [facility] [address] [place] [address] Phone: tel: Referral ID Status Reason Start Date Expiration Date Visits Re quested Visits Authorized [id number] Closed 07/22/2024 07/22/2025 1 1 Encounter Details Date Type Department Care Team (Late st Contact Info) Description 07/20/[address] [address] Diana Fong APRN [address] [place] [address] Social History Tobacco Use Types Packs/Day Years Used Date Smoking Tobacco: Every Day Cigarettes Alcohol Use Standard Drinks/Week Comments Never 0 (1 standard drink = 0.6 oz pur e alcohol) [facility] Utilities Answer Date Recorded In the past [...] Date Recorded PHQ-2 Total Score 0 09/17/2023 [facility] of Occupat ional Health - Occupational Stress [...] money to get more. Never true 09/17/2023 [facility] IP Transportation Answer D ate Recorded In [...] Telephone Encounter - Deirdre Carlin MA - 07/26/2024 8:19 AM EDT MRI scheduled 08/03/24 * Telephone Encounter - Ramya Stoll MA - 07/25/2024 12:07 PM EDT LVMTCB #2 ELVIRA Tried to call apteit[facility]. Per Natalya Carrillo ok to get MRI without contrast. new MRI order placed. Patientcan call [facility] scheduling at [phone] to get MRI scheduled * Telephone Encounter - Rozina Shaw - 07/22/2024 11:53 AM EDT LVMTCB #1 THURSDAY Tried to call apte[facility]. Per Natalya Carrillo ok to get MRI without contrast. new MRI order placed. Patientcan call [facility] scheduling at [phone] to get MRI scheduled, * Telephone Encounter - Rozina Shaw - 07/21/2024 3:02 PM EDT Will discuss with Natalya tomorrow to see if patient can get MRI without contrast * Telephone Encounter - Saba Borrero, Clerical Staff - 07/20/2024 2:21 PM EDT pt is req a call back to discuss her mri. she had an allergic reaction to contrast in the past and would like to discuss maybe another option documented in this encounter Plan of Treatment Upcoming Encounters Date Type Department Care Team (Late st Contact Info) Description 11/02/2024 11:15 AM EDT Office Visit [facility] [address] [facility] [place] [address] Rod Tejeda MD [address] [facility] [place] [address] 11/23/2024 11:00 AM EDT [facility] Visit [facility] [address] [place] [address] Nava Ramirez MD [address] [place] [address] documented as of this encounter Results * MRI LUMBAR SPINE WO CONTRAST [...] 6:32 PM CLINICAL HISTORY: Z98.890-Other specified postprocedural ahbbew-FHC-41-CM M54.50-Low back pain, drgubvzbcjn-BVU-60-CM M54.16-Radiculopathy, lumbar zlnkky-LNR-70-CM Z87.39-Personal history of other diseases of the musculoskeletal system and connective bomwcu-HDJ-10-CM. COMPARISON: Intraoperative visualization lumbar spine surgery September [...] 08/03/2024 6:32 PM CLINICAL HISTORY: Z98.890-Other specified olhjvdqstebqotyltatz-DZB-36-CM M54.50-Low back pain, bqtmuhyqfof-YJC-73-CM M54.16-Radiculopathy, lumbar yiujwo-WPO-32-CM Z87.39-Personal history of other diseases of the musculoskeletal systemand connective rzybte-SFM-43-CM. COMPARISON: Intraoperative visualization lumbar spine surgery August [...] Additional noncompressive degenerative changes at L3-L4 and L5-Q9bybgho. - Note: Radiology results need to be interpreted within a comprehensiveclinical context. If you have questions about the radiology report, please contactthe office of the ordering clinician. Result [facility] Neel-Carrillo JAVA PROGRAMMER IMG MRI ORDERABL ES Final Result documented in this encounter Visit Diagnoses Diagnosis Status post lumbar surgery- Primary Other postprocedural status Lumbar pain Lumbago Lumbar radiculopathy Thoracic or lumbosacral neuritis or radiculitis, unspecified History of herniated intervertebral disc Status post lumbar surgery Other postprocedural status Lumbar pain Lumbago Lumbar radiculopathy Thoracic or lumbosacral neuritis or radiculitis, unspecified History of herniated intervertebral disc documented in this encounter Care Teams Frontend Engineer Relationship Specialty Start Date End Date Fabricio Meadows MD PCP - General Family Medicine 08/18/13 documented as of this encounter
--- OUTSIDE RECORDS SUMMARY | 2024-10-11 23:40 | XMS_ITS | Encounter Summary ---
Author Organization [facility] Address [address] [place] [address] Care Team Providers Care Studio Model Name Role Phone Fabricio Meadows MD Primary Care Provider [phone] Encounter Details Date Type Department Care Team (Late st Contact Info) Description 09/23/2024 Plan of Care Documentation [facility] [address] [facility] [address] [place], [place] [id number] Social History Tobacco Use Types Packs/Day Years Used Date Smoking Tobacco: Every Day Cigarettes Alcohol Use Standard Drinks/Week Comments Never 0 (1 standard drink = 0.6 oz pur e alcohol) [facility] Utilities Answer Date Recorded In the past [...] Date Recorded PHQ-2 Total Score 0 09/17/2023 [facility] of Occupat ional Health - Occupational Stress [...] money to get more. Never true 09/17/2023 [facility] IP Transportation Answer D ate Recorded In [...] as of this encounter Miscellaneous Notes * Therapist Plan of Care - Mirian Del Angel, PT - 09/23/2024 3:57 PM EDT Images from the original note were not included. Please sign to acknowledge agreement with this updated plan of care. 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 Signature: Mirian Del Angel PT Date: 09/23/2024 [place] License: [id number] [place] License: [id number] documented in this encounter Plan of Treatment Upcoming Encounters Date Type Department Care Team (Late st Contact Info) Description 11/02/2024 11:15 AM EDT Office Visit [facility] [address] [place] [phone] Rod Tejeda MD [address] [place] [phone] 11/23/2024 11:00 AM EDT [facility] Visit [facility] [address] [place] [address] Nava Ramirez MD [facility] [place] [address] documented as of this encounter Visit Diagnoses Not on filedocumented in this encounter Care Teams Studio Model Relationship Specialty Start Date End Date Fabricio Meadows MD PCP - General Family Medicine 08/18/13 documented as of this encounter
--- OUTSIDE RECORDS SUMMARY | 2024-10-11 23:40 | XMS_ITS | Encounter Summary ---
Author Organization [facility] Address [address] [place] [address] Care Team Providers Care Insurance Defense Paralegal Name Role Phone Fabricio Meadows MD Primary Care Provider Reason for Visit * Reason Onset Date Comments Medication Refill 09/07/2024 Encounter Details Date Type Department Care Team (Late st Contact Info) Description 09/07/2024 Refill [facility] [place] [address] [place] [address] Rod Tejeda MD [address] [place] [address] Medication Refill Social History Tobacco Use Types Packs/Day Years Used Date Smoking Tobacco: Every Day Cigarettes Alcohol Use Standard Drinks/Week Comments Never 0 (1 standard drink = 0.6 oz pur e alcohol) [facility] Utilities Answer Date Recorded In the past 12 months has [employer] electric, gas, oil, or water company threatened to shut off services in your home? No 09/17/2023 Overall Financial Resource Strain (CARDIA) Answe r Date Recorded How hard is it for you to pa y for the very basics like food, housing, medical care, and heating? Not hard at all 09/17/2023 PHQ-2 Answer Date Recorded PHQ-2 Total Score 0 09/17/2023 [facility] of Occupat ional Health - Occupational Stress [...] money to get more. Never true 09/17/2023 [facility] IP Transportation Answer D ate Recorded In [...] on file documented as of this encounter Ordered Prescriptions Prescription Sig Dispense Quantity Refills Last Filled Start Date End Date gabapentin (NEURONTIN) 300 mg Oral CapsuleIndications:S tatus post lumbar surgery,Lumbar pain,Lumbar radiculopathy,HNP (herniated nucleus pulposus), lumbar,Degeneration of intervertebral disc of lumbar region with discogenic back pain and lower extremity pain,Radiculopathy of lumbar region Take 1 Capsule by mouth 3 times daily. 90 Capsule 09/07/2024 documented in this encounter Plan of Treatment Upcoming Encounters Date Type Department Care Team (Late st Contact Info) Description 11/02/2024 11:15 AM EDT Office Visit [facility] [address] [place] [phone] Rod Tejeda MD [address] [address] 11/23/2024 11:00 AM EDT [facility] Visit [facility] [address] [place] [phone] Nava Ramirez MD [address] [place] [address] documented as of this encounter Visit Diagnoses Diagnosis Status post lumbar surgery- Primary Other postprocedural status Lumbar pain Lumbago Lumbar radiculopathy Thoracic or lumbosacral neuritis or radiculitis, unspecified HNP (herniated nucleus pulposus), lumbar Displacement of lumbar intervertebral disc without myelopathy Degeneration of intervertebral disc of lumbar region with discogenic back pain and lower extremity pain Radiculopathy of lumbar region Thoracic or lumbosacral neuritis or radiculitis, unspecified documented in this encounter Discontinued Medications Medication Sig Discontinue Reason Start Date End Da te gabapentin (NEURONTIN) 100 mg Oral CapsuleIndications:Status post lumbar surgery,Lumbar pain,Lumbar radiculopathy,HNP (herniated nucleus pulposus), lumbar,Degeneration of intervertebral disc of lumbar region with discogenic back pain and lower extremity pain Take 1-2 Capsules by mouth 3 times daily. Cancelled by 09/06/2024 09/07/2024 documented as of this encounter Care Teams Insurance Defense Paralegal Relationship Specialty Start Date End Date Fabricio Meadows MD PCP - General Family Medicine 08/18/13 documented as of this encounter
--- OUTSIDE RECORDS SUMMARY | 2024-10-11 23:40 | XMS_ITS | Encounter Summary ---
Author Organization [facility] Address [address] [place] [address] Care Team Providers Care Metal Casket Maker Name Role Phone Fabricio Meadows MD Primary Care Provider Reason for Visit * Reason Onset Date Comments Other 09/30/2024 Encounter Details Date Type Department Care Team (Late st Contact Info) Description 09/30/2024 [place] [address] Rod Tejeda MD [address] [place] [address] Other Social History Tobacco Use Types Packs/Day Years Used Date Smoking Tobacco: Every Day Cigarettes Alcohol Use Standard Drinks/Week Comments Never 0 (1 standard drink = 0.6 oz pur e alcohol) [facility] Utilities Answer Date Recorded In the [...] Date Recorded PHQ-2 Total Score 0 09/17/2023 [place] of Occupat ional Health - Occupational Stress [...] money to get more. Never true 09/17/2023 [facility] H[facility]N [facility] IP Transportation Answer D ate Recorded In [...] Telephone Encounter - Deirdre Carlin MA - 09/30/2024 11:27 AM EDT spoke with patient, PT did not help patient. Scheduled patient to come back into see Dr. Tejeda Patient asked about trying different muscle relaxer, since Robaxin TID did not provide relief. Patient was also wanting to know if she could get a refill of Ibuprofen 800. * Telephone Encounter - Bessy Montejo - 09/30/2024 9:50 AM EDT pt is calling because she was kicked out of PT because there was nothing they could do for her she is also asking that we call in a different muscle relaxer for her please return call and advise documented in this encounter Plan of Treatment Upcoming Encounters Date Type Department Care Team (Late st Contact Info) Description 11/02/2024 11:15 AM EDT Office Visit [facility] [address] [facility] Rod Tejeda MD [address] [place] [address] 11/23/2024 11:00 AM EDT [facility] Visit [facility] [address] [place] [address] Nava Ramirez MD [address] [place] [id number] documented as of this encounter Visit Diagnoses Not on filedocumented in this encounter Care Teams Metal Casket Maker Relationship Specialty Start Date End Date Fabricio Meadows MD PCP - General Family Medicine 08/18/13 documented as of this encounter
--- OUTSIDE RECORDS SUMMARY | 2024-10-11 23:40 | XMS_ITS | Encounter Summary ---
Author Organization [facility] Address [address] [place] [address] Care Team Providers Care Solar Photovoltaic Crew Lead Name Role Phone Fabricio Meadows MD Primary Care Provider [phone] Encounter Details Date Type Department Care Team (Late st Contact Info) Description 09/08/2024 [place] [address] Diana Fong, [place] [address] Social History Tobacco Use Types Packs/Day Years Used Date Smoking Tobacco: Every Day Cigarettes Alcohol Use Standard Drinks/Week Comments Never 0 (1 standard drink = 0.6 oz pur e alcohol) [facility] Utilities Answer Date Recorded In the past [...] Date Recorded PHQ-2 Total Score 0 09/17/2023 [place] of Occupat ional Health - Occupational Stress [...] money to get more. Never true 09/17/[address] [facility] IP Transportation Answer D ate Recorded In [...] encounter Miscellaneous Notes * Telephone Encounter - Ramya Stoll MA - 09/08/2024 1:30 PM EDT Spoke with patient about her appointment on Thursday with Natalya. Patient is wanting to see if she canget an RAHEL. Also advised that I spoke with pharmacy to go on an fill it but, pharmacy wanted to push back. * Telephone Encounter - Teodoro Chavira, Clerical Staff - 09/08/2024 10:22 AM EDT [facility] [place] [phone] Patient said the pharmacy will need a call to ok the refill for Gabapentin since the mg has changed. She is out of medication. Please call back documented in this encounter Plan of Treatment Upcoming Encounters Date Type Department Care Team (Late st Contact Info) Description 11/02/2024 11:15 AM EDT Office Visit [facility] Ornelas [address] [place] [address] Rod Tejeda MD [address] [place] [address] 11/23/2024 11:00 AM EDT [facility] Visit [facility] [address] [place] [address] Nava Ramirez MD [address] [place] [address] documented as of this encounter Visit Diagnoses Not on filedocumented in this encounter Care Teams Solar Photovoltaic Crew Lead Relationship Specialty Start Date End Date Fabricio Meadows MD PCP - General Family Medicine 08/18/13 documented as of this encounter
--- OUTSIDE RECORDS SUMMARY | 2024-10-11 23:40 | XMS_ITS | Encounter Summary ---
Author Organization [facility] Address [address] [place] [address] Care Team Providers Care Head Loader Name Role Phone Fabricio Meadows MD Primary Care Provider [phone] Encounter Details Date Type Department Care Team (Late st Contact Info) Description 08/24/2024 Telephone [facility] [address] [place] [address] Rod Tejeda MD [address] [place] [address] Social History Tobacco Use Types Packs/Day Years Used Date Smoking Tobacco: Every Day Cigarettes Alcohol Use Standard Drinks/Week Comments Never 0 (1 standard drink = 0.6 oz pur e alcohol) [facility] Utilities Answer Date Recorded In the [...] Date Recorded PHQ-2 Total Score 0 09/17/2023 [facility] [place] of Occupat ional Health - Occupational Stress [...] money to get more. Never true 09/17/2023 [facility] IP Transportation Answer D [...] encounter Miscellaneous Notes * Telephone Encounter - Rozina Shaw - 08/25/2024 4:21 PM EDT Spoke with patient and let her know that she has to try PT due to insurance not approving surgery. She does have an appt scheduled for 09/01. Advised if it does cause more pain etc that she will need to let the therapist know. * Telephone Encounter - Preethi Larios, Clerical Staff - 08/24/2024 2:34 PM EDT Patient said she was told to call if her pain worsened. She says it is. She would like a call back. documented in this encounter Plan of Treatment Upcoming Encounters Date Type Department Care Team (Late st Contact Info) Description 11/02/2024 11:15 AM EDT Office Visit [facility] [address] [facility] [place] [address] Rod Tejeda MD [address] [facility] [place] [address] 11/23/2024 11:00 AM EDT Office Visit [facility] [address] [place] [address] Nava Ramirez MD [address] [facility] [address] documented as of this encounter Visit Diagnoses Not on filedocumented in this encounter Care Teams Head Loader Relationship Specialty Start Date End Date Fabricio Meadows MD PCP - General Family Medicine 08/18/13 documented as of this encounter
--- OUTSIDE RECORDS SUMMARY | 2024-10-11 23:40 | XMS_ITS | Encounter Summary ---
Author Organization [facility] Address [address] [place] [address] Care Team Providers Care Elementary Ell Teacher Name Role Phone Fabricio Meadows MD Primary Care Provider [phone] Encounter Details Date Type Department Care Team (Late st Contact Info) Description 09/23/2024 Plan of Care Documentation [facility] [address] [facility] [address] [place], [place] [id number] Social History Tobacco Use Types Packs/Day Years Used Date Smoking Tobacco: Every Day Cigarettes Alcohol Use Standard Drinks/Week Comments Never 0 (1 standard drink = 0.6 oz pur e alcohol) [facility] Utilities Answer Date Recorded In the past [...] Date Recorded PHQ-2 Total Score 0 09/17/2023 [facility] [place] of Occupat ional Health - Occupational Stress [...] get more. 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, use to [...] Signature: Mirian Del Angel PT Date: 09/23/2024 [place] License: [id number] [place] License: [id number] documented in this encounter Plan of Treatment Upcoming Encounters Date Type Department Care Team (Late st Contact Info) Description 11/02/2024 11:15 AM EDT Office Visit [facility] Ornel[facility] [address] [place] [phone] Rod Tejeda MD [address] [place] [phone] 11/23/2024 11:00 AM EDT [facility] [address] [place] [address] Nava Ramirez MD [facility] [place] [address] documented as of this encounter Visit Diagnoses Not on filedocumented in this encounter Care Teams Elementary Ell Teacher Relationship Specialty Start Date End Date Fabricio Meadows MD PCP - General Family Medicine 08/18/13 documented as of this encounter
--- OUTSIDE RECORDS SUMMARY | 2024-10-11 23:40 | XMS_ITS | Encounter Summary ---
Author Organization [facility] Address [address] [place] [address] Care Team Providers Care Office Support Clerk Name Role Phone Fabricio Meadows MD Primary Care Provider [phone] Encounter Details Date Type Department Care Team (Late st Contact Info) Description 09/08/2024 [place] [address] Diana Fong, [place] [address] Social History Tobacco Use Types Packs/Day Years Used Date Smoking Tobacco: Every Day Cigarettes Alcohol Use Standard Drinks/Week Comments Never 0 (1 standard drink = 0.6 oz pur e alcohol) [facility] Utilities Answer Date Recorded In the [...] Date Recorded PHQ-2 Total Score 0 09/17/2023 [place] of Occupat ional Health - Occupational Stress [...] money to get more. Never true 09/17/2023 [facility] H[facility] IP Transportation Answer D ate Recorded [...] on file documented as of this encounter Plan of Treatment Upcoming Encounters Date Type Department Care Team (Late st Contact Info) Description 11/02/2024 11:15 AM EDT Office Visit [facility] [address] [place] [address] Rod Tejeda MD [address] [place] [address] 11/23/2024 11:00 AM EDT [facility] [address] [place] [address] Nava Ramirez MD [address] [place] [phone] documented as of this encounter Visit Diagnoses Not on filedocumented in this encounter Care Teams Office Support Clerk Relationship Specialty Start Date End Date Fabricio Meadows MD PCP - General Family Medicine 08/18/13 documented as of this encounter
--- OUTSIDE RECORDS SUMMARY | 2024-10-11 23:40 | XMS_ITS | Encounter Summary ---
Author Organization [facility] Address [address] [place] [address] Care Team Providers Care Deckhand Sponge Boat Name Role Phone Fabricio Meadows MD Primary Care Provider [phone] Reason for Visit * Reason Onset Date Comments Medication Refill 09/06/2024 Encounter Details Date Type Department Care Team (Late st Contact Info) Description 09/06/2024 Refill [facility] [place] [address] [place] [address] Rod Tejeda MD [address] [place] [address] Medication Refill Social History Tobacco Use Types Packs/Day Years Used Date Smoking Tobacco: Every Day Cigarettes Alcohol Use Standard Drinks/Week Comments Never 0 (1 standard drink = 0.6 oz pur e alcohol) [facility] Utilities Answer Date Recorded In the past 12 months has Network electric, gas, oil, or water company threatened to shut off services in your home? No 09/17/2023 Overall Financial Resource Strain (CARDIA) Answe r Date Recorded How hard is it for you to pa y for the very basics like food, housing, medical care, and heating? Not hard at all 09/17/2023 PHQ-2 Answer Date Recorded PHQ-2 Total Score 0 09/17/2023 [facility] [place] of Occupat ional Health - Occupational Stress [...] money to get more. Never true 09/17/2023 [facility] IP Transportation Answer D ate Recorded [...] Filled Start Date End Date gabapentin (NEURONTIN) 100 mg Oral CapsuleIndications:S tatus post lumbar surgery,Lumbar pain,Lumbar radiculopathy,HNP (herniated nucleus pulposus), lumbar,Degeneration of intervertebral disc of lumbar region with discogenic back pain and lower extremity pain Take 1-2 Capsules by mouth 3 times daily. 180 Capsule 09/06/2024 documented in this encounter Plan of Treatment Upcoming Encounters Date Type Department Care Team (Late st Contact Info) Description 11/02/2024 11:15 AM EDT Office Visit [facility] [address] [place] [id number] Rod Tejeda MD [address] [address] 11/23/2024 11:00 AM EDT [facility] Visit [facility] [address] [place] [address] Nava Ramirez MD [address] [facility] [place] [address] documented as of this encounter Visit Diagnoses Diagnosis Status post lumbar surgery Other postprocedural status Lumbar pain Lumbago Lumbar radiculopathy Thoracic or lumbosacral neuritis or radiculitis, unspecified HNP (herniated nucleus pulposus), lumbar Displacement of lumbar intervertebral disc without myelopathy Degeneration of intervertebral disc of lumbar region with discogenic back pain and lower extremity pain documented in this encounter Discontinued Medications Medication Sig Discontinue Reason Start Date End Da te gabapentin (NEURONTIN) 100 mg Oral CapsuleIndications:Status post lumbar surgery,Lumbar pain,Lumbar radiculopathy,HNP (herniated nucleus pulposus), lumbar,Degeneration of intervertebral disc of lumbar region with discogenic back pain and lower extremity pain Take 1 Capsule by mouth 3 times daily. Reorder 08/08/2024 09/06/2024 documented as of this encounter Care Teams Deckhand Sponge Boat Relationship Specialty Start Date End Date Fbaricio Meadows MD PCP - General Family Medicine 08/18/13 documented as of this encounter
--- OUTSIDE RECORDS SUMMARY | 2024-10-11 23:40 | XMS_ITS | Encounter Summary ---
Author Organization [facility] Address [address] [place] [address] Care Team Providers Care Lead Sprinkler Name Role Phone Fabricio Meadows MD Primary Care Provider [phone] Encounter Details Date Type Department Care Team (Late st Contact Info) Description 09/30/2024 Orders Only [facility] [address] [place] [address] Rod Tejeda MD [address] [place] [address] Lumbar pain (Primary Dx); Lumbar radiculopathy; Status post lumbar surgery; HNP (herniated nucleus pulposus), lumbar; Degeneration of intervertebral disc of lumbar region with discogenic back pain and lower extremity pain; HNP (herniated nucleus pulposus), lumbar Social History Tobacco Use Types Packs/Day Years Used Date Smoking Tobacco: Every Day Cigarettes Alcohol Use Standard Drinks/Week Comments Never 0 (1 standard drink = 0.6 oz pur e alcohol) [facility] Utilities Answer Date Recorded In the past 12 months has [employer], gas, oil, or water [employer] threatened to shut off services in your home? No 09/17/2023 Overall Financial Resource Strain (CARDIA) Answe r Date Recorded How hard is it for you to pa y for the very basics like food, housing, medical care, and heating? Not hard at all 09/17/2023 PHQ-2 Answer Date Recorded PHQ-2 Total Score 0 09/17/2023 [facility] [place] of Occupat ional Health - Occupational Stress [...] money to get more. Never true 09/17/2023 [facility] IP Transportation Answer D ate Recorded In [...] Refills Last Filled Start Date End Date ibuprofen (ADVIL;MOTRIN) 800 mg Oral TabletIndications:Brigida mbar pain,Lumbar radiculopathy,Status post lumbar surgery,Degeneration of intervertebral disc of lumbar region with discogenic back pain and lower extremity pain,HNP (herniated nucleus pulposus), lumbar Take 1 Tablet by mouth 3 times daily as needed. 90 Tablet 09/30/2024 cyclobenzaprine (FLEXERIL) 10 mg Oral TabletIndications:Brigida mbar pain,Lumbar radiculopathy,Status post lumbar surgery,HNP (herniated nucleus pulposus), lumbar,Degeneration of intervertebral disc of lumbar region with discogenic back pain and lower extremity pain Take 1 Tablet by mouth 3 times daily. 90 Tablet 09/30/2024 documented in this encounter Plan of Treatment Upcoming Encounters Date Type Department Care Team (Late st Contact Info) Description 11/02/2024 11:15 AM EDT Office Visit [facility] Ornelas [address] [facility] [place] [address] Rod Tejeda MD [address] [facility] [address] 11/23/2024 11:00 AM EDT Office Visit [facility] [address] [place] [address] Nava Ramirez MD [address] [place] [address] documented as of this encounter Visit Diagnoses Diagnosis Lumbar pain- Primary Lumbago Lumbar radiculopathy Thoracic or lumbosacral neuritis or radiculitis, unspecified Status post lumbar surgery Other postprocedural status HNP (herniated nucleus pulposus), lumbar Displacement of lumbar intervertebral disc without myelopathy Degeneration of intervertebral disc of lumbar region with discogenic back pain and lower extremity pain documented in this encounter Discontinued Medications Medication Sig Discontinue Reason Start Date End Da te ibuprofen (ADVIL;MOTRIN) 800 mg Oral TabletIndications:Status post lumbar surgery,Lumbar pain,Lumbar radiculopathy,HNP (herniated nucleus pulposus), lumbar,Degeneration of intervertebral disc of lumbar region with discogenic back pain and lower extremity pain Take 1 Tablet by mouth 3 times daily as needed. Reorder 08/08/2024 09/30/2024 documented as of this encounter Care Teams Lead Sprinkler Relationship Specialty Start Date End Date Fabricio Meadows MD PCP - General Family Medicine 08/18/13 documented as of this encounter
--- OUTSIDE RECORDS SUMMARY | 2024-10-11 23:40 | XMS_ITS | Encounter Summary ---
Author Organization [facility] Address [address] [place] [address] Care Team Providers Care Implementation Project Manager Name Role Phone Fabricio Meadows MD Primary Care Provider [phone] Reason for Visit * Reason Onset Date Comments CM-Medication Assistance 09/07/2024 Encounter Details Date Type Department Care Team (Late st Contact Info) Description 09/07/2024 [place] [address] Diana Fong, [place] [address] CM-Medication Assistance Social History Tobacco Use Types Packs/Day Years Used Date Smoking Tobacco: Every Day Cigarettes Alcohol Use Standard Drinks/Week Comments Never 0 (1 standard drink = 0.6 oz pur e alcohol) [facility] Utilities Answer Date Recorded In the past 12 months has [employer], gas, oil, or water company threatened to shut off services in your home? No 09/17/2023 Overall Financial Resource Strain (CARDIA) Answe r Date Recorded How hard is it for you to pa y for the very basics like food, housing, medical care, and heating? Not hard at all 09/17/2023 PHQ-2 Answer Date Recorded PHQ-2 Total Score 0 09/17/2023 [facility] [place] of Occupat ional Health - Occupational Stress [...] money to get more. Never true 09/17/2023 [facility] IP Transportation Answer D ate Recorded In [...] * Telephone Encounter - Rozina Shaw - 09/07/2024 2:10 PM EDT Script ok by Natalya. Will send to pharmacy. * Telephone Encounter - Marcelina Zhao, Clerical Staff - 09/07/2024 8:39 AM EDT Patient calling to see if the Gabapentin medication can be changed back to 300 mg and sent to the [facility] in [place]. Please advise. documented in this encounter Plan of Treatment Upcoming Encounters Date Type Department Care Team (Late st Contact Info) Description 11/02/2024 11:15 AM EDT Office Visit [facility] Ornel[facility] [address] [facility] [place] [address] Rod Tejeda MD [address] [place] [address] [place] [address] 11/23/2024 11:00 AM EDT [facility] [address] [place] [address] Nava Ramirez MD [address] [place] [address] documented as of this encounter Visit Diagnoses Not on filedocumented in this encounter Care Teams Implementation Project Manager Relationship Specialty Start Date End Date Fabricio Meadows MD PCP - General Family Medicine 08/18/13 documented as of this encounter
--- OUTSIDE RECORDS SUMMARY | 2024-10-11 23:40 | XMS_ITS | Encounter Summary ---
Author Organization [facility] Address [address] [place] [address] Care Team Providers Care Manager Ethics Name Role Phone Fabricio Meadows MD Primary Care Provider [phone] Reason for Referral * Physical Therapy (Routine) - Authorization Not [...] region, unspecified whether neurogenic claudication present Rod Patino MD [address] [address] Phone: tel: fax: [facility] PT [address] [facility] [address] [place] [address] Phone: tel: fax: Referral ID Status Reason Start Date Expiration Date Visits Requested Visits Authorized [id number] Authorization Not Needed 08/17/2024 04/26/2025 1 20 Question Answer Evaluate and Treat Yes Select as appropriate Evaluate and treat appropriately Modalities/Procedures As Indicated Therapeutic Exercise As Indicated Goals: Decrease pain and swelling, Increase function, Increase strength, Increase ROM Additional instructions: Frequency and duration per therapist discretion Reason for Visit * Reason Onset Date Comments Orders 08/17/2024 Encounter Details Date Type Department Care Team (Late st Contact Info) Description 08/17/2024 Telephone [facility] [address] [facility] [place] [id number] Rod Patino MD [address] [facility] [place] [address] Orders Social History Tobacco Use Types Packs/Day Years Used Date Smoking Tobacco: Every Day Cigarettes Alcohol Use Standard Drinks/Week Comments Never 0 (1 standard drink = 0.6 oz pur e alcohol) [facility] Utilities Answer Date Recorded In [...] Date Recorded PHQ-2 Total Score 0 09/17/2023 [facility] of Occupat ional Health - Occupational [...] money to get more. Never true 09/17/2023 [facility] IP Transportation Answer D ate Recorded In [...] Telephone Encounter - Ramya Stoll MA - 08/17/2024 1:10 PM EDT Spoke with patient and advised that insurance denied the surgery that they wanted Physical Therapy to be tried. Advised that we will put the order for physical therapy. Advised to the patient that ifit becomes to much to call us back and have PT put in a discharge note. * Telephone Encounter - Ramya Stoll MA - 08/17/2024 1:10 PM EDT ----- Message from [employer] sent at 08/17/2024 11:42 AM EDT ----- Regarding: SURGERY DENIED LUMBAR SURGERY DENIED BY [employer] [facility] MEDICA[facility]ED[facility] [place] [address] PATINO ORDER PT AND TRY IT. IF TOO PAINFUL NEED DISCHARGE NOTE FROM PTPLEASE CALL PATIENT WHEN PT ORDER IS IN documented in this encounter Plan of Treatment Upcoming Encounters Date Type Department Care Team (Late st Contact Info) Description 11/02/2024 11:15 AM EDT Office Visit [facility] [address] [place] [phone] Rod Patino MD [address] [place] [phone] 11/23/2024 11:00 AM EDT [facility] [address] [place] [address] Nava Ramirez MD [address] [place] [address] Scheduled Referrals Name Type Priority Associated Diagnoses [...] post lumbar surgery- Primary Other postprocedural status HNP (herniated nucleus pulposus), lumbar Displacement of lumbar intervertebral disc without myelopathy Lumbar pain Lumbago Degeneration of intervertebral disc of lumbar region, unspecified whether pain present Radiculopathy of lumbar region Thoracic or lumbosacral neuritis or radiculitis, unspecified Lumbar radiculopathy Thoracic or lumbosacral neuritis or radiculitis, unspecified History of herniated intervertebral disc Spinal stenosis of lumbar region, unspecified whether neurogenic claudication present documented in this encounter Care Teams Manager Ethics Relationship Specialty Start Date End Date Fabricio Meadows MD PCP - General Family Medicine 08/18/13 documented as of this encounter
--- OUTSIDE RECORDS SUMMARY | 2024-10-11 23:40 | XMS_ITS | Encounter Summary ---
Author Organization [facility] Address [address] [place] [address] Care Team Providers Care Biomedical Engineering Professor Name Role Phone Fabricio Meadows MD Primary Care Provider [phone] Encounter Details Date Type Department Care Team (Late st Contact Info) Description 09/06/2024 [place] [address] Diana Fong, [place] [address] Social History Tobacco Use Types Packs/Day Years Used Date Smoking Tobacco: Every Day Cigarettes Alcohol Use Standard Drinks/Week Comments Never 0 (1 standard drink = 0.6 oz pur e alcohol) [facility] Utilities Answer Date Recorded In the [...] Date Recorded PHQ-2 Total Score 0 09/17/2023 [facility] - Occupational Stress [...] money to get more. Never true 09/17/2023 [facility] IP Transportation Answer D ate Recorded In [...] * Telephone Encounter - Rozina Shaw - 09/06/2024 2:24 PM EDT Refill request sent to Dr. Tejeda to sign. * Telephone Encounter - Amy Voss, Clerical Staff - 09/06/2024 1:54 PM EDT Pt called requesting a refill of gabapentin. She is taking 2 tabs three times a day. Her pharmacy is [facility] [id number] [place] [address] - [address] [facility] - [phone] documented in this encounter Plan of Treatment Upcoming Encounters Date Type Department Care Team (Late st Contact Info) Description 11/02/2024 11:15 AM EDT Office Visit [facility] Ornelas [address] [address] Rod Tejeda MD [address] [address] 11/23/2024 11:00 AM EDT Office Visit [facility] [address] [place] [address] Nava Ramirez MD [address] [facility] [id number] documented as of this encounter Visit Diagnoses Not on filedocumented in this encounter Care Teams Biomedical Engineering Professor Relationship Specialty Start Date End Date Fabricio Meadows MD PCP - General Family Medicine 08/18/13 documented as of this encounter
--- OUTSIDE RECORDS SUMMARY | 2024-10-11 23:40 | XMS_ITS | Clinical Summary ---
Author Organization [facility] Address [address] [place] [address] Care Team Providers Care Sash Maker Name Role Phone Fabricio Meadows MD Primary Care Provider [phone] Allergies Active Allergy Reactions Criticality Noted Date Comments Ciprofloxacin Hives High 03/31/2017 Codeine 08/12/2015 Gadolinium Derivatives Anaphylaxis High 04/09/2023 Latex 08/12/2015 Penicillins 08/12/2015 Buprenorphine Hcl-Naloxone Hcl 08/11 Sulfa Antibiotics 08/12/2015 Medications No known medications Family History Medical History Relation Name Comments Cancer Maternal Cousin ovarian Cancer Maternal Grandfather lung ca ncer Cancer Maternal Grandmother lung ca ncer Cancer Sister skin cancer Relation Name Status Comments Maternal Cousin Maternal Grandfather Maternal Grandmother Sister Alive Social History Tobacco Use Types Packs/Day Years Used Date Smoking Tobacco: Former Cigarettes Q uit: 09/30/2015 Smokeless Tobacco: Never Tobacco Cessation:Counseling Given: Not Answered Alcohol Use Standard Drinks/Week Comments No 0 (1 standard drink = 0.6 oz pur e alcohol) Interpersonal Safety Domain Source: IP Abuse Scr eening Answer Date Recorded Read-Only, Retired: Physical Abuse Denies 04/22/2023 Read-Only, Retired: Verbal Abuse Denies 04/22/2023 Read-Only, Retired: Emotional abuse Denies 04/22/2023 Read-Only, Retired: Financial Abuse Denies 04/22/2023 Read-Only, Retired: Sexual abuse Denies 04/22/2023 Comments No Sex and Gender Information Value Date Recorded Sex Assigned at Not on file Legal Sex Female 12:32 PM EST Gender Identity Not on file Sexual Orientation Not on file Last Filed Vital Signs Vital Sign Reading Time Taken Comments Blood Pressure 117/74 04/22/2023 5:39 PM EST Pulse 90 04/22/2023 5:39 PM EST Temperature 36.6 C (97.8 F) 04/22/2023 5:39 PM EST Respiratory Rate 18 04/22/2023 5:39 PM EST Oxygen Saturation 97% 04/22/2023 5:39 PM EST Inhaled Oxygen Concentration - - Weight 79.4 kg (175 lb) 04/09/2023 1:02 PM EST Height 171.5 cm (5' 7.5 ) 04/09/2023 1:02 PM EST Body Mass Index 27 04/09/2023 1:02 PM EST Plan of Treatment Health Maintenance Due Date Last Done Comments Depression Screen 1997 Varicella vaccine (1 of 2 - 13+ 2-dose series) 1998 HIV screen 2000 Hepatitis C screen 12/30/2003 DTaP/Tdap/Td vaccine (1 - Tdap) 2004 Hepatitis B vaccine (1 of 3 - 19+ 3-dose series) 2004 COVID-19 Vaccine (2023-2 5 season) 2023 Flu vaccine (Season Ended) 2024 HPV vaccine Aged Out No longer eligi ble based on patient's age to complete this topic Hepatitis A vaccine Aged Out No longe r eligible based on patient's age to complete this topic Hib vaccine Aged Out No longer eligi ble based on patient's age to complete this topic Meningococcal (ACWY) vaccine Aged Out No longer eligible based on patient's age to complete this topic Meningococcal B vaccine Aged Out No l onger eligible based on patient's age to complete this topic Pneumococcal 0-49 years Vaccine Aged Out No longer eligible based on patient's age to complete this topic Polio vaccine Aged Out No longer elig ible based on patient's age to complete this topic Medical Devices Implanted Type Area Clinical Trial Educator Device Identifier Shelf Expiration Date Model / Serial / Lot Plate Lapidus Rt Std - [id number] Implanted:Qty: 1 on 04/22/2023 by Aston Mosher DPM at [facility] Screw/Pl ate/Nail /Bry Right: Foot BIG Launcher [facility] [id number] / / Screw Bne L22mm Dia3.5mm Rj Ft Ank Ti Rodo Full Thrd For - [id number] Implanted:Qty: 1 on 04/22/2023 by Aston Mosher DPM at [facility] Right: Foot [employer] [facility] [id number] / / Screw Bne L20mm Dia3.5mm Rj Ft Ank Ti Nonlocking Full - [id number] Implanted:Qty: 1 on 04/22/2023 by Aston Mosher DPM at [facility] Right: [facility] [id number] / / Screw Bne L16mm Dia3.5mm Rj Ft Ank Ti Rodo Full Thrd For - [id number] Implanted:Qty: 1 on 04/22/2023 by Aston Mosher DPM at [facility] Right: [facility] [id number] / / Kwire Fix L102mm Ciz22ld For Hamrtoe Fix Phalinx - [id number] Implanted:Qty: 2 on 04/22/2023 by Aston Mosher DPM at [facility] Right: [facility] [id number] / / Implant Toe M 0deg Marline For Hamrtoe Fix Phalinx - [id number] Implanted:Qty: 2 on 04/22/2023 by Aston Mosher DPM at [facility] Right: Foot [facility] [id number] / / Graft Hum Tiss Ambient 2 Cc Flowable Plcnta Tiss Viaflow - [id number] Implanted:Qty: 1 on 04/22/2023 by Aston Mosher DPM at [facility] Right: Foot [employer] [facility] 09/02/2027 [id number] / [id number] / [place] Sut Dia4.5mm Knotless Peek Reelx Stt - [id number] Implanted:Qty: 1 on 04/22/2023 by Aston Mosher DPM at [facility] Right: Foot [employer] [facility] [facility]- 01/29/2025 [id number] / / [id number] Instrument Kit 5.5 Mm Anchr Suture Drl Guide [place] Disp - [id number] Implanted:Qty: 1 on 04/22/2023 by Aston Mosher DPM at [facility] Right: Foot [employer] [facility]- 08/19/2029 [id number] / / [id number] Description:NOT AN IMPLANT Graft Bne Ptty 2.5 Cc Inj Dbm Beast - [id number] Implanted:Qty: 1 on 04/22/2023 by Aston Mosher DPM at [facility] Right: Foot [employer] 28- 12/09/2025 [id number] / [id number] / Graft Bone Tib Inj 1.5cc Allogrft Augment - [id number] Implanted:Qty: 1 on 04/22/2023 by Aston Mosher DPM at [facility] Right: Foot [employer] [facility]- 04/23/2025 [id number] / / [id number] Graft Bne Wdg 8 Deg 8 Mm Lapidus - [id number] Implanted:Qty: 1 on 04/22/2023 by Aston Mosher DPM at [facility] Right: Foot [employer] 28- 07/18/2026 [id number] / [id number] / Staple Int Fix [id number] L1.2mm Thk1.5mm Ft Ank Nit Sup E - [id number] Implanted:Qty: 1 on 04/22/2023 by Aston Mosher DPM at [facility] Right: Foot [employer] [facility]- 03/26/2027 [id number] / / [id number] Screw Bne L18mm Dia3.5mm Rj Ft Ank Ti Rodo Full Thrd For - [id number] Implanted:Qty: 2 on 04/22/2023 by Aston Mosher DPM at [facility] Right: Foot [employer] [facility] [id number] / / Explanted Type Area Clinical Trial Educator Device Identifier Shelf Expiration Date Model / Serial / Lot [place] Sut Dia4.5mm Knotless Peek Reelx Stt - [id number] Explanted:Qty: 1 on 04/22/2023 by Aston Mosher DPM at [facility] Right: Foot [employer] [facility] [facility] 09/29/2024 [id number] / / [id number] K Wire Fix L150mm Dia2.5mm For Ortholoc 3di Sys - [id number] Explanted:Qty: 2 on 04/22/2023 by Aston Mosher DPM at [facility] Right: Foot [employer]- [id number] / / Insurance [facility] Care Teams Sash Maker Relationship Specialty Start Date End Date Fabricio Meadows MD [address] [place] [address] PCP - General Family Medicine 04/22/23
[2024-10-13 08:13] LABS: Hep B Core Ab, Total Negative (Negative)
== END 2024-10-11 23:59 | disposition home or self-care (01) ==
LOC: LAB 23:38
PROVIDERS: PCP Family Medicine; Visit Provider Family Medicine
DX: R76.8 Other specified abnormal immunological findings in serum (principal)
CPT/HCPCS: 87522